=== PATIENT | male | born 1935 | race Caucasian/White ===

== ENCOUNTER → 2019-09-04 | Outpatient (CLI) | payer MEDICARE, OTHER ==
[2019-07-07 11:48] VITALS: BP 120/59
[~2019-09-04] MED LIST: ASPI-612 PO; PANT40TA77 PO
--- NOTE | 2019-09-04 16:19 | CARD ---
MR#: [id number] Date of Study: 09/04/2019 Ordering Physician: ARMEN MEJIA, Referring Physician: ARMEN MEJIA, Tech: APPROVED REPORT PROCEDURE: IMPLANTABLE LOOP RECORDER Reason for procedure: Dizziness, bradycardia, SSS Details: After appropriate informed consent the patient was brought to the procedure suite. The chest was prep ped and draped in usual sterile fashion. 2% lidocaine local anesthesia was administered to the left p arasternal space in a angulated fashion near the fourth rib space. Next, a loop 11 blade scalpel was used to make a 0.5 inch incision and a separate case tunnel was created with the loop recorder deploy ment/tunneling tool. Next, the [employer] confirm Rx loop recorder was implanted without any difficulty . R-wave amplitude was measured at 0.36 mV. Serial number of the device: [id number] The incision was closed with 1 2-0 suture and Steri-Strips. The patient tolerated the procedure well and there were no acute competitions. <Conclusion> Successful plantation of a loop recorder for sick sinus syndrome/bradycardia. Signed by : Armen Mejia, Electronically Approved : 09/04/2019 16:18:57
== END | disposition home or self-care (01) ==
LOC: LINQ 11:56
PROVIDERS: ATTEND Internal Medicine Cardiovascular Disease
DX: Z45.09 Encounter for adjustment and management of other cardiac device (principal); R42 Dizziness and giddiness; R00.1 Bradycardia, unspecified
CPT/HCPCS: 33285; C1764

== ENCOUNTER → 2019-09-04 | Outpatient (CLI) | payer MEDICARE, OTHER ==
[2019-07-07 11:48] VITALS: BP 120/59
--- NOTE | 2019-09-04 12:41 | CARD ---
MR#: [id number] Date of Study: 09/04/2019 Ordering Physician: ARMEN MEJIA, Referring Physician: ARMEN MEJIA, Alejandro: Keri Vuong APPROVED REPORT EXAM: Two-dimensional and M-mode echocardiogram with Doppler and color Doppler. Other Information Quality : AverageHR: 61bpm INDICATION Abnormal ECG 2D DIMENSIONS RVDd2.8 (2.9-3.5cm)Left Atrium(2D)3.9 (1.6-4.0cm) IVSd1.2 (0.7-1.1cm)Aortic Root(2D)3.0 (2.0-3.7cm) LVDd4.5 (3.9-5.9cm)LVOT Diameter2.2 (1.8-2.4cm) PWd1.1 (0.7-1.1cm)LVDs2.6 (2.5-4.0cm) FS (%) 41.5 %SV65.9 ml LVEF(%)72.5 (>50%) Aortic Valve AoV Peak Prakash.129.9cm/sAoV VTI25.1cm AO Peak GR.6.8mmHgLVOT Peak Prakash.113.4cm/s LVOT VTI 23.42cmAO Mean GR.4mmHg GAUTAM (VMAX)2.32gr6QWK (VTI)3.52cm2 Mitral Valve MV E Xnhzxvtk41.2cm/sMV DECEL [id number] MV A Bsalcsol97.7cm/sMV TKM59tj E/A Ratio0.8MVA (PHT)3.35cm2 TDI E/Lateral E'8.9E/Medial E'11.3 Pulmonary Valve PV Peak Efhnaclp387.3cm/sPV Peak Grad.8mmHg Tricuspid Valve RAP [id number] Pulmonary Vein S1 Awfjbufp85.1cm/sD2 Jswbqlwo18.2cm/s PVa [id number] LEFT VENTRICLE The left ventricle is normal size. There is borderline to mild septal left ventricular hypertrophy. T he left ventricular systolic function is normal and the ejection fraction is within normal range. The Ejection Fraction is 60-65%. There is normal LV segmental wall motion. Transmitral Doppler flow ro mazin is Grade I-abnormal relaxation pattern. RIGHT VENTRICLE The right ventricle cavity is small. The right ventricular systolic function is normal. ATRIA The left atrium size is normal. The right atrium size is normal. The interatrial septum is intact wit h no evidence for an atrial septal defect or patent foramen ovale as noted on 2-D or Doppler imaging. AORTIC VALVE The aortic valve is thickened but opens well. Doppler and Color Flow revealed trace aortic regurgitat ion. There is no significant aortic valvular stenosis. MITRAL VALVE The mitral valve is thickened but opens well. There is no evidence of mitral valve prolapse. There is no mitral valve stenosis. Doppler and Color-flow revealed trace mitral regurgitation. TRICUSPID VALVE The tricuspid valve is normal in structure and function. Doppler and Color Flow revealed trace tricus pid regurgitation. There is no tricuspid valve stenosis. PULMONIC VALVE The pulmonic valve is not well visualized. Doppler and Color Flow revealed trace to mild pulmonic crystal vular regurgitation. There is no pulmonic valvular stenosis. GREAT VESSELS The aortic root is normal in size. The ascending aorta is borderline dilated The IVC is normal in siz e and collapses >50% with inspiration. PERICARDIAL EFFUSION There is no pleural effusion. There is no evidence of significant pericardial effusion. Critical Notification Critical Value: No <Conclusion> The left ventricular systolic function is normal and the ejection fraction is within normal range. Th e Ejection Fraction is 60-65%. There is normal LV segmental wall motion. Signed by : Armen Mejia, Electronically Approved : 09/04/2019 12:40:57
== END | disposition home or self-care (01) ==
LOC: ECHO 10:35
PROVIDERS: ATTEND Internal Medicine Cardiovascular Disease
DX: I37.1 Nonrheumatic pulmonary valve insufficiency (principal); I51.7 Cardiomegaly
CPT/HCPCS: 93306

== ENCOUNTER → 2020-05-22 | Outpatient (CLI) | payer MEDICARE, OTHER ==
[2019-07-07 11:48] VITALS: BP 120/59
[~2020-05-22] MED LIST changes: -ASPI-612 PO; +ASPI-886 PO
--- NOTE | 2020-05-22 11:45 | RAD ---
CT HEAD WO CONTRAST Date: 05/22/2020 11:30 AM Clinical Indication: Reason: ALZHEIMERS LATE ONSET / Spl. Instructions: / History: Comparison: 07/06/2019. Technique: 5 mm axial tomographic images were obtained of the head without contrast. These were viewed on brain and bone windows. One or more of the following dose reduction techniques were utilized: Automated exposure control (AEC), Adjustment of mA and/or kV according to patient size, Use of iterative reconstruction technique such as ASiR, CT scan done according to ALARA and image gently/image wisely Findings: Mild generalized cerebral and cerebellar volume loss. Mild nonspecific periventricular hypoattenuation, most commonly seen with chronic small vessel ischemic disease. Calcified atherosclerosis of the bilateral cavernous and paraclinoid internal carotid arteries and intracranial vertebral arteries. No intra- or extra-axial mass or fluid collection. No acute hemorrhage. The ventricles are normal in size, shape, and morphology. The stubbs-white matter junction is normal. The subarachnoid cisterns are patent. The visualized paranasal sinuses are clear. Nasal septum is deviated to the left. Right stacey bullosa. The visualized portions of the orbits and globes are normal. The mastoid air cells are clear. The property analyst topogram shows no lytic lesion or fracture. Impression: No acute intracranial process. Mild cerebral volume loss. Mild chronic small vessel ischemic disease. Electronically signed by: Fercho Kenny MD (05/22/2020 11:42 AM) [id number]
== END | disposition home or self-care (01) ==
LOC: CT 12:12
PROVIDERS: ATTEND Psychiatry & Neurology Neurology with Special Qualifications in Child Neurology
DX: I67.82 Cerebral ischemia (principal); I67.2 Cerebral atherosclerosis; G30.1 Alzheimer's disease with late onset; I65.23 Occlusion and stenosis of bilateral carotid arteries
CPT/HCPCS: 36415; 70450; 82607; 82746; 84443; 86140

== ENCOUNTER → 2020-07-11 | Outpatient (CLI) | payer MEDICARE, OTHER ==
[2019-07-07 11:48] VITALS: BP 120/59
--- NOTE | 2020-07-11 15:51 | RAD ---
Bilateral lower extremity arterial ultrasound History:Claudication Findings: Multiple grayscale, color, and duplex spectral analysis sonographic images were acquired of the lower extremity arteries bilaterally. There are no previous similar exams. There is moderate scattered plaque. There are triphasic and biphasic waveforms bilaterally. No vessel occlusion is demonstrated. There is collateral vessel at level of the right distal superficial femoral artery. There is appearance on color images of more focal narrowing and greater degree of plaque of the right dorsalis pedis artery although demonstrable flow present distally. There is also appearance of focus of decreased color-flow in the distal left superficial femoral artery although color flow more distally. There is degree of stenosis of the left common femoral artery. Velocities in cm/sec: RIGHT Common femoral artery 125 Profunda femoris artery 89 Proximal SFA 123 Mid SFA 112 Distal SFA 109 Popliteal artery 115 Posterior tibial artery 84 proximally and 26 distally Peroneal artery 86 Anterior tibial artery 71 Dorsalis pedis artery 125 LEFT: Common femoral artery 140 Profunda femoris artery 87 Proximal SFA 98 Mid SFA 109 Distal SFA 103 Popliteal artery 101 Posterior tibial artery 70 proximally and 78 distally Peroneal artery 77 Anterior tibial artery 66 Dorsalis pedis artery 99 Impression: 1. There is scattered multifocal plaque bilaterally. There is likely more focal stenosis of the left common femoral artery, also possibly of the distal left superficial femoral artery and the distal right dorsalis pedis artery. No vessel occlusion is demonstrated. Electronically signed by: Fercho Saravia MD (07/11/2020 3:48 PM) [id number]
== END | disposition home or self-care (01) ==
LOC: US 12:17
PROVIDERS: ATTEND Psychiatry & Neurology Neurology with Special Qualifications in Child Neurology
DX: I70.203 Unspecified atherosclerosis of native arteries of extremities, bilateral legs (principal)
CPT/HCPCS: 93925

== ENCOUNTER → 2020-07-15 | Outpatient (CLI) | payer MEDICARE, OTHER ==
[2019-07-07 11:48] VITALS: BP 120/59
--- NOTE | 2020-07-15 14:43 | RAD ---
3 views of the lumbar spine without comparison for lumbago with bilateral sciatica. FINDINGS: There is straightening of normal lumbar lordosis. There is mild wedging of T12 possibly due to an old healed compression fracture. No acute fracture or osseous abnormality is seen. No alignment abnormality. Bilateral pars defects are present at L5 however. Aortic atherosclerosis is seen. Robust facet arthrosis is present lower lumbar levels. IMPRESSION: 1. No acute osseous or alignment abnormality. 2. Multilevel degenerative changes. 3. Bilateral pars defects of L5. No spondylolisthesis. Electronically signed by: Ty Samaniego MD (07/15/2020 2:40 PM) [id number]
== END | disposition home or self-care (01) ==
LOC: RAD 12:54
PROVIDERS: ATTEND Psychiatry & Neurology Neurology with Special Qualifications in Child Neurology
DX: M47.816 Spondylosis without myelopathy or radiculopathy, lumbar region (principal); M40.46 Postural lordosis, lumbar region; M48.54XA Collapsed vertebra, not elsewhere classified, thoracic region, initial encounter for fracture; I70.0 Atherosclerosis of aorta
CPT/HCPCS: 72100

== ENCOUNTER 2020-10-12 10:46 | Emergency (ER) | payer MEDICARE, OTHER ==
[~2020-10-12] VITALS: Ht 175.3 cm; Wt 89.0 kg
[2020-10-12] MEDS ORDERED: ONDANSETRON PF 4 MG/2 ML VIAL. IVP ONE (11:15)
[2020-10-12] MEDS ORDERED: IV NORMAL SALINE 500ML BAG 500 ML IV ONE (11:15)
[2020-10-12 11:20] LABS: BASO # 0.4 x10^3/uL (0.0-0.2); BASO % 4 % (0-3); EOS # 0.3 x10^3/uL (0.0-0.7); EOS % 2 % (0-3); LYMPH # 3.1 x10^3/uL (1.0-4.8); LYMPH % 27 % (24-48); MEAN CORPUSCULAR HEMOGLOBIN 38 pg (25-35); MEAN CORPUSCULAR HGB CONC 35 g/dL (31-37); MEAN CORPUSCULAR VOLUME 109 fL (79-100); MONO # 0.9 x10^3/uL (0.0-1.1); MONO % 7 % (0-9); NEUT # 6.8 x10^3/uL (1.8-7.7); NEUT % 60 % (31-73); PLATELET COUNT 333 x10^3/uL (140-400); RED BLOOD COUNT 2.94 x10^6/uL (4.30-5.70); RED CELL DISTRIBUTION WIDTH 23.2 % (11.5-14.5); WHITE BLOOD COUNT 11.5 x10^3/uL (4.0-11.0)
[2020-10-12 11:28] LABS: CALCIUM 9.1 mg/dL (8.5-10.1); CREATININE 1.1 mg/dL (0.7-1.3); GFR 63.5; POTASSIUM 4.4 mmol/L (3.5-5.1)
--- NOTE | 2020-10-12 11:28 | PHYS DOC ---
Past Medical History Past Medical History: CAD, Dementia Past Surgical History: Other Additional Past Surgical Histo: cardiac cath with stent; R shoulder, L hand Smoking Status: Former Smoker Alcohol Use: None Drug Use: None General Adult EDM: Chief Complaint: GENERALIZED BODY ACHES HPI: HPI: Patient is a 85 year old male who presents with today he began feeling nausea, fatigue and headache with slight lightheadedness. Patient son had Covid 2 weeks ago. Patient states he did eat some cereal this morning and drink. He rates his headache and general body aches and fatigue a 5 out of 10. Patient has a history of Alzheimer's, CAD, cardiac cath, former smoker. Patient states he does have some shortness of breath but no chest pain. Denies vomiting, diarrhea, fever, syncope, back pain, neck pain, abdominal pain, numbness or tingling, focal weakness. Review of Systems: Review of Systems: Constitutional: Denies fever or chills. [] Eyes: Denies change in visual acuity. [] HENT: Denies nasal congestion or sore throat. [] Respiratory: Denies cough. +shortness of breath. [] Cardiovascular: Denies chest pain or edema. [] GI: Denies abdominal pain. + nausea, denies vomiting, bloody stools or diarrhea. [] : Denies dysuria. [] Musculoskeletal: Denies back pain or joint pain. + Generalized body aches [] Integument: Denies rash. [] Neurologic: + headache and +lightheadedness, denies focal weakness or sensory changes. [] Endocrine: Denies polyuria or polydipsia. [] Lymphatic: Denies swollen glands. [] Psychiatric: Denies depression or anxiety. [] Heart Score: Risk Factors: Risk Factors: DM, Current or recent (<one month) smoker, HTN, HLP, family history of CAD, obesity. Risk Scores: Score 0 - 3: 2.5% MACE over next 6 weeks - Discharge Home Score 4 - 6: 20.3% MACE over next 6 weeks - Admit for Clinical Observation Score 7 - 10: 72.7% MACE over next 6 weeks - Early Invasive Strategies Current Medications: Current Medications Medications (Trade) Dose Ordered Sig/Roni Start Time Stop Time Status Last Admin Dose Admin Ondansetron HCl (Zofran) 4 mg 1X ONCE 10/12/20 11:15 10/12/20 11:16 DC Sodium Chloride 500 ml @ 500 mls/hr 1X ONCE 10/12/20 11:15 10/12/20 12:14 Allergies: Allergies: Allergies Coded Allergies Type Severity Reaction Last Updated Verified No Known Drug Allergies 07/06/19 No Physical Exam: PE: Constitutional: Well developed, well nourished, no acute distress, non-toxic appearance. [] HENT: Normocephalic, atraumatic, bilateral external ears normal, oropharynx moist, no oral exudates, nose normal. [] Eyes: PERRLA, EOMI, conjunctiva normal, no discharge. [] Neck: Normal range of motion, no tenderness, supple, no stridor. [] Cardiovascular:Heart rate regular rhythm, no murmur [] Lungs & Thorax: Bilateral breath sounds clear to auscultation [] Abdomen: Bowel sounds normal, soft, no tenderness, no masses, no pulsatile masses. [] Skin: Warm, dry, no erythema, no rash. [] Back: No tenderness, no CVA tenderness. [] Extremities: No tenderness, no cyanosis, no clubbing, ROM intact, no edema. [] Neurologic: Alert and oriented X 3, normal motor function, normal sensory function, no focal deficits noted. [] Psychologic: Affect normal, judgement normal, mood normal. [] Current Patient Data: Vital Signs: Vital Signs Date Time Temp Pulse Resp B/P (MAP) Pulse Ox O2 Delivery O2 Flow Rate FiO2 10/12/20 11:00 98.5 74 16 155/93 (113) 97 Room Air 98.5 EKG: EK and read by Dr. Benton this sinus rhythm and no STEMI Radiology/Procedures: Radiology/Procedures: [] Impression: [facility] [address] [place], [place] [id number] IMAGING REPORT Signed PATIENT: JESUS HOBBS ACCOUNT: [id number] : 1935 LOCATION: ER AGE: 85 SEX: M EXAM STATUS: REG ER ORD. PHYSICIAN: JOHANNA DARBY APRN REASON: soa PROCEDURE: PORTABLE CHEST 1V Exam performed: CT scan of the head without contrast, single view chest Date of Service: 10/12/2020. Comparison: CT head without contrast from 05/22/2020. Clinical History: Dizziness and syncope. Technique: Helical acquisitions are obtained from the foramen magnum to the vertex without intravenous administration of contrast. Findings: The ventricles are midline without evidence of dilatation. Normal stubbs-white differentiation is maintained. Mild atrophy is stable. There is no extra axial fluid collection, intraparenchymal hemorrhage or mass lesion. The visualized portions of the orbits, paranasal sinuses and the mastoid air cells appear clear. The calvarium is intact. Impression: No acute intracranial process detected. PQRS Compliance Statement: One or more of the following individualized dose reduction techniques were utilized for this examination: 1. Automated exposure control 2. Adjustment of the mA and/or kV according to patient size 3. Use of iterative reconstruction technique End impression Exam performed: One view chest. Indication: Reason: soa / Spl. Instructions: / History: Date of Service: 10/12/2020 11:21 AM Comparison: None available. Single AP upright portable view chest findings: Cardiomediastinal silhouette is within limits of normal. No acute infiltrates, effusion or pneumothorax is detected. The bony structures are normal. Impression: No acute cardiopulmonary process is detected. Electronically signed by: Joaquina Hernandes MD (10/12/2020 11:43 AM) [id number] DICTATED and SIGNED BY: JOAQUINA HERNANDES MD DATE: 10/12/20 [id number] Course & Med Decision Making: Course & Med Decision Making Pertinent Labs and Imaging studies reviewed. (See chart for details) COVID-19 CRITERIA: The patient was evaluated during the global COVID-19 pandemic, and that diagnosis was suspected/considered upon their initial presentation. Their evaluation, treatment and testing was consistent with current guidelines for patients who present with complaints or symptoms that may be related to COVID-19. See HPI. Alert and oriented x4. Patient does have Alzheimer's and he is a poor historian. He does answer questions appropriately. He can full clear sentenc es. Ambulatory with a steady gait. Abdomen soft and nontender. Lungs are clear to auscultation all lobes. Chest x-ray shows no acute findings. CT of the head shows no acute findings. Patient is not hypoxic or requiring oxygen. Blood work is unremarkable. He is afebrile. Patient will be sent home with Covid precautions. [] Dragon Disclaimer: Draganali Disclaimer: This electronic medical record was generated, in whole or in part, using a voice recognition dictation system. COVID-19 Patient Risks: Age 65 or older: Yes Sign of co-morbidity: Yes Exp to person + for COVID: Yes Exp to PUI: Yes Travel from affected area: No Lower respiratory symptoms: Yes Fever: No Other: Yes (fatigue) PPE Use: Full PPE with N95 mask or PAPR: Yes Departure Departure Impression: Primary Impression: Person under investigation for COVID-19 Additional Impressions: Generalized body aches Fatigue Qualified Codes: R53.83 - Other fatigue Disposition: DC HOME SELF CARE/HOMELESS Condition: STABLE Referrals: SAM JUNIOR MD (PCP) Patient Instructions: Fatigue Additional Instructions: Follow-up with your primary care provider. Return if you begin having severe shortness of breath, chest pain or cannot keep food or fluids down. Quarantine for Covid and that test will come will be back in 48 hours. You have been tested for or diagnosed with COVID-19. It is an infection caused by a new type of coronavirus. COVID-19 will cause cold-like or mild flu symptoms in most. It can cause more severe symptoms like problems breathing in some. There is no treatment for COVID-19. The body will clear the infection over time. Self-care will help to ease discomfort. Steps to Take: Self-Care Rest as needed. Healthy habits may help you feel better. Steps include: Choose healthy foods including fruits and vegetables. Drink water throughout the day. Get plenty of sleep each night. If you smoke, try to quit. It may ease breathing. Avoid alcohol. Keep Others Healthy The virus can spread to others. Droplets are released every time you sneeze or cough. The droplets can get into the mouth, nose, or eyes of people near you and lead to infection. To lower the chances of spreading COVID-19 to others: Stay at home until your doctor has said it is safe to leave. If you tested positive this will mean staying isolated until both of the following are true: At least 7 days have passed since the start of illness. You are free of fever for at least 72 hours without the use of medicine. During this time: - Avoid public areas, events, or transportation. Do not return to work or school until your doctor has said it is safe to do so. - Call ahead if you need to go to a medical center. Let them know you may have COVID-19. It will help them guide you where to go. They may also ask you to wear a facemask when you come to the office. - If you call for emergency medical services, let them know you may have COVID- 19. While at home: - Try to avoid close contact with others. Stay about 6 feet away. - If possible, spend most of your time in a separate room from others. - Use a face mask if you will be in close contact with others such as sharing a room or vehicle. - Have someone wipe down common surfaces in the home. Use household horticultural manager every day on areas like doorknobs, counters, or sinks. - Cough or sneeze into a tissue. Throw the tissue away right after use. If a tissue is not available, cough or sneeze into your elbow. - Wash your hands often. Wash them after sneezing or coughing. Use soap and water and wash for at least 20 seconds. Alcohol based hand cleaner housekeeping can be used if soap and water is not available. - Do not prepare food for others. Avoid sharing personal items like forks, spoons, or toothbrushes. - Avoid close contact with pets while you are sick. There is no evidence of the virus passing to pets. This is a safety step until more is known about this virus. Isolation can be frustrating. Social interaction can help. Keep in touch with friends and family through phone and tech options. You can still interact with others in your home, just keep a safe distance of about 6 feet. Follow-up: Your doctors office will check in with you to see if there are any changes in your health. You may be asked to keep track of symptoms to share with them. They will also let you know when you are clear to be in public again. Problems to Look Out For: Contact your doctor if your recovery is not going as you expect. Get emergency care if you have problems such as: - Trouble breathing - Nonstop chest pain or pressure - Changes in awareness, confusion, or problems waking - Lips or face have bluish color - Worsening of symptoms If you think you have an emergency, call for emergency medical services right aw ay. As taken from [facility] Azithromycin (AZITHROMYCIN TABLET) 250 Mg Tablet 1 PKG PO UD for 5 Days, #6 TAB 0 Refills 2 the first day followed by 1 for days 2-5 Prov: JOHANNA DARBY APRN 10/12/20 Albuterol Sulfate (PROAIR HFA INHALER) 8.5 Gm Hfa.aer.ad 1 PUFF INH PRN Q6HRS PRN for SHORTNESS OF BREATH, #1 INHALER 0 Refills Prov: JOHANNA DARBY APRN 10/12/20 Methylprednisolone (MEDROL) 4 Mg Tab.ds.pk 1 PKG PO UD, #1 PKG Prov: JOHANNA DARBY APRN 10/12/20 JOHANNA DARBY APRN Oct 12, 2020 11:28
[2020-10-12 11:33] LABS: ALBUMIN 3.6 g/dL (3.4-5.0); ALBUMIN/GLOBULIN RATIO 1.4 (1.0-1.7); MAGNESIUM 2.5 mg/dL (1.8-2.4); TOTAL BILIRUBIN 0.6 mg/dL (0.2-1.0); TOTAL PROTEIN 6.1 g/dL (6.4-8.2)
--- NOTE | 2020-10-12 11:46 | RAD ---
Exam performed: CT scan of the head without contrast, single view chest Date of Service: 10/12/2020. Comparison: CT head without contrast from 05/22/2020. Clinical History: Dizziness and syncope. Technique: Helical acquisitions are obtained from the foramen magnum to the vertex without intravenou s administration of contrast. Findings: The ventricles are midline without evidence of dilatation. Normal stubbs-white differentiation is maint ained. Mild atrophy is stable. There is no extra axial fluid collection, intraparenchymal hemorrhage or mass lesion. The visualized portions of the orbits, paranasal sinuses and the mastoid air cells a ppear clear. The calvarium is intact. Impression: No acute intracranial process detected. PQRS Compliance Statement: One or more of the following individualized dose reduction techniques were utilized for this examinat ion: 1. Automated exposure control 2. Adjustment of the mA and/or kV according to patient size 3. Use of iterative reconstruction technique End impression Exam performed: One view chest. Indication: Reason: soa / Spl. Instructions: / History: Date of Service: 10/12/2020 11:21 AM Comparison: None available. Single AP upright portable view chest findings: Cardiomediastinal silhouette is within limits of normal. No acute infiltrates, effusion or pneumotho rax is detected. The bony structures are normal. Impression: No acute cardiopulmonary process is detected. Electronically signed by: Joaquina Hernandes MD (10/12/2020 11:43 AM) [id number]
[2020-10-12 12:17] LABS: % EOS 4 % (0-5); % LYMPHS 30 % (24-48); % MONOS 8 % (0-10); % SEGS 58 % (35-66); ANISOCYTOSIS SLIGHT; OVALOCYTES FEW; PLT ESTIMATE ADEQUATE (ADEQUATE)
[2020-10-12] MEDS ORDERED: METH4TAB2 PO (12:24)
[2020-10-12] MEDS ORDERED: ALBU2.5V8 INH (12:24)
[2020-10-12] MEDS ORDERED: AZIT250T6 PO (12:24)
[2020-10-12 12:33] VITALS: BP 146/72
[2020-10-12 12:37] LABS: BILIRUBIN,URINE NEGATIVE (NEG); CLARITY,URINE CLEAR; COLOR,URINE YELLOW; NITRITE,URINE NEGATIVE (NEG); PH,URINE 5.5 (<5.0-8.0); PROTEIN,URINE NEGATIVE (NEG-TRACE); UROBILINOGEN,URINE 0.2 mg/dL (0.2 mg/dL)
[2020-10-12 12:47] LABS: BACTERIA,URINE 0 /HPF (0-FEW); RBC,URINE 0 /HPF (0-2); WBC,URINE OCC /HPF (0-4)
--- NOTE | 2020-10-14 11:03 | NUR ---
IP: Informed pt of negative COVID results. Pt verbalized understanding.
--- NOTE | 2020-10-14 12:25 | EKG ---
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
== END 2020-10-12 12:40 | disposition home or self-care (01) ==
LOC: ER 10:46
DX: R53.83 Other fatigue (principal); Z20.828 Contact with and (suspected) exposure to other viral communicable diseases; R51.9 Headache, unspecified; R42 Dizziness and giddiness; R11.0 Nausea; F03.90 Unspecified dementia, unspecified severity, without behavioral disturbance, psychotic disturbance, mood disturbance, and anxiety; I25.10 Atherosclerotic heart disease of native coronary artery without angina pectoris; Z87.891 Personal history of nicotine dependence; Z98.890 Other specified postprocedural states
CPT/HCPCS: 36415; 70450; 71045; 80053; 81001; 83690; 83735; 83880; 84484; 85007; 85025; 93005; 96361; 96374; 99285; C9803; J2405; J7040; U0003

== ENCOUNTER → 2021-01-30 | Outpatient (CLI) | payer MEDICARE, OTHER ==
[~2021-01-30] MED LIST changes: +ALBU2.5V8 INH; +AZIT250T6 PO; +CRAN250C PO; +CYAN25008 PO; +DONE10TA7 PO; +MEMA10TA PO; +METH4TAB2 PO; +MULTICOLLAGEN PO; +ONDA4TAB7 PO
== END ==
LOC: LAB 11:17
PROVIDERS: ATTEND Internal Medicine Cardiovascular Disease
DX: Z01.812 Encounter for preprocedural laboratory examination (principal); I49.5 Sick sinus syndrome; Z20.822 Contact with and (suspected) exposure to COVID-19
CPT/HCPCS: U0003; U0005

== ENCOUNTER 2021-02-02 08:37 | Observation (INO) | payer MEDICARE, OTHER ==
[~2021-02-02] VITALS: Ht 177.8 cm; Wt 84.3 kg
[2021-02-02] VITALS (18 sets, daily range): BP systolic 108–162; BP diastolic 52–76
[~2021-02-02 08:37] MED LIST changes: -CRAN250C PO; -CYAN25008 PO; -DONE10TA7 PO; -MEMA10TA PO; -MULTICOLLAGEN PO; -ONDA4TAB7 PO
--- NOTE | 2021-02-02 09:23 | EKG ---
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
[2021-02-02] MEDS ORDERED: CRAN250C PO (09:25)
[2021-02-02] MEDS ORDERED: MULTICOLLAGEN PO (09:25)
[2021-02-02] MEDS ORDERED: ONDA4TAB7 PO (09:25)
[2021-02-02] MEDS ORDERED: MEMA10TA PO (09:25)
[2021-02-02] MEDS ORDERED: CYAN25008 PO (09:25)
[2021-02-02] MEDS ORDERED: DONE10TA7 PO (09:25)
[2021-02-02 09:42] LABS: CALCIUM 8.5 mg/dL (8.5-10.1); CREATININE 1.1 mg/dL (0.7-1.3); GFR 63.5; POTASSIUM 4.2 mmol/L (3.5-5.1)
[2021-02-02] MEDS ORDERED: BACITRACIN 50,000 UNIT in IV NORMAL SALINE 250ML 250 ML IRR ONE (10:00)
[2021-02-02 10:01] LABS: HEMATOCRIT 31.4 % (39.0-53.0); HEMOGLOBIN 10.8 g/dL (13.0-17.5); RED BLOOD COUNT 2.9 x10^6/uL (4.30-5.70); RED CELL DISTRIBUTION WIDTH 22.6 % (11.5-14.5); WHITE BLOOD COUNT 7.1 x10^3/uL (4.0-11.0)
[2021-02-02 10:28] LABS: PROTHROMBIN TIME PATIENT 14.4 SEC (11.7-14.0)
[2021-02-02] MEDS ORDERED: LIDOCAINE 2%/EPI 1:100,000 20 ML VIAL. ONE (11:01)
[2021-02-02] MEDS ORDERED: MIDAZOLAM HCL/PF 2 MG/2 ML VIAL. ONE (11:06)
[2021-02-02] MEDS ORDERED: fentaNYL PF VIAL 100 MCG/2 ML VIAL ONE (11:06)
[2021-02-02] MEDS ORDERED: MIDAZOLAM HCL/PF 2 MG/2 ML VIAL. IV ONE (11:15)
[2021-02-02] MEDS ORDERED: fentaNYL PF VIAL 100 MCG/2 ML VIAL IV ONE (11:15)
--- NOTE | 2021-02-02 11:40 | PDOC ---
MODERATE SEDATION ASSESSMENT RISKS/ALTERNATIVES Risks/Alternatives Risks and alternatives of this type of sedation and procedure discussed with: RISK/ALTERNATIVES: Patient H & P ON CHART H & P H & P on chart and reviewed for co-morbid conditions and appropriate labs. H&P ON CHART: Yes STATUS PREG STATUS ASSESSED: N/A MEDS/ALLERGIES REVIEWED Meds/Allergies Reviewed Medications and Allergies including time and route of recently administered narcotics and sedatives. MEDS/ALLERGIES REVIEWED: Yes ASA RATING ASA RATING: II AIRWAY ASSESSMENT Airway Assessment Airway patency, oral function limitations, presence of caps, crowns, dentures, partials, and ability to extend neck assessed. AIRWAY ASSESSMENT: Yes MALLAMPATI SCORE MALLAMPATI SCORE: II PRE-SEDATION ASSESSMENT PRE-SEDATION ASSESSMENT: Yes ARMEN MEJIA MD Feb 02, 2021 11:40
[2021-02-02] MEDS: LIDOCAINE 2%/EPI 1:100,000 20 ML VIAL. IJ ONE ×2 (11:46→11:48)
[2021-02-02] MEDS ORDERED: NO ANTICOAGULANT THERAPY. MC PRN (13:00)
--- NOTE | 2021-02-02 13:37 | RAD ---
EXAM: Chest, single view. HISTORY: Pacemaker placement. COMPARISON: 10/12/2020. FINDINGS: A frontal view of the chest is obtained. There is a dual lead left cardiac pacemaker overly ing expected position. There is no pneumothorax. There is no infiltrate or pleural effusion. The hear t is normal in size. There has been removal of a cardiac event monitor. IMPRESSION: 1. Dual-lead left-sided cardiac pacemaker in expected position. 2. No acute pulmonary finding. Electronically signed by: Amelia Guidry MD (02/02/2021 1:35 PM) [id number]
--- NOTE | 2021-02-02 14:00 | CARD ---
MR#: [id number] Date of Study: 02/02/2021 Ordering Physician: ARMEN MEJIA, Referring Physician: ARMEN MEJIA, Tech: APPROVED REPORT HISTORY The Patient is a 85 year-old male with a history of SSS, high grade AVB PROCEDURES Insertion Dual Chamber Pacemaker *Loop recorder removal. fl time: 4.2 min dose: 12 gycm2 moderate sedation: 80 min INDICATIONS 30 mL of 2% lidocaine was infiltrated into the skin and subcutaneous tissues for local anesthesia. A n incision was made over the left infraclavicular fossa and using blunt dissection and cautery a pock et was created. Venous access was obtained in the left subclavian vein and 7 Thai sheaths were ins erted. Subsequently, a Medtronic bipolar active fixation right ventricular lead model 4076-58 with serial nu mber [id number] was advanced under fluoroscopic guidance and the tip was positioned in the right vent ricular apex. Following this, a Medtronic bipolar active fixation right atrial lead model 4076-52 [facility] serial number [id number] was placed in the right atrial appendage under fluoroscopy guidance. The leads were secured into place and were attached to a Medtronic dual-chamber permanent pacemaker gene rator model W3DR01 with serial number [id number]. This was placed in the pocket that was subsequentl y closed in 3 layers. Hemostasis was secured. At the end of procedure, the right ventricular lead showed sensing amplitude of 7.0 mV, impedance of 510 ohms and a threshold of 0.5 volts. The right atrial lead showed a sensing amplitude of 1.8 kristen volts, impedance of 658 ohms and a threshold of 1.0 volts. Finally, attention was then turned to the previously placed [place] loop recorder by the left parast ernal space. 5mL of lidocaine was infiltrated in the skin and subcutaneous tissues, a 11 blade scapel was used to make a 0.5 inch incision. The loop recorder was then removed without difficulty. The inc ision was then closed with a single 4-0 suture and steristrips. AAIR to DDDR 60-130 Patient tolerated the procedure well. There were no immediate complications. IV conscious sedation was used throughout procedure with appropriate monitoring and was performed in the presence of a registered nurse who was an independent trained observer other than the physician p erforming the procedure. During this case, Fluoroscopy and no contrast were used for imaging. Specimen(s) Removed: N/A Estimated Blood loss: 30 cc's. CONCLUSION 1. Successful insertion of a dual chamber pacemaker for SSS. Signed by : Armen Mejia, Electronically Approved : 02/02/2021 14:00:00
--- NOTE | 2021-02-02 15:20 | NUR ---
Patient being admitted to [facility], transferred via bed. notified-- she will be present at 0800 to meet w/ PPM rep. VS stable, site assessed; no bleeding. Education provided on site care. Report given to Elena SWENSON on 2S. Aware of 1720 antibiotic. All belongings taken w/ patient at time of transfer.
[2021-02-02] MEDS: oxyCODONE/APAP 5/325 1 TAB TABLET PO PRN ×2 (17:28→23:40)
--- NOTE | 2021-02-02 17:52 | NUR ---
The patient, JESUS HOBBS, 85 y/o, M admitted by ARMEN MEJIA MD, was given written information regarding hospital policies, unit procedures and contact persons.
[2021-02-03 03:21] VITALS: BP 122/62
[2021-02-03 07:00] VITALS: BP 115/65
--- NOTE | 2021-02-03 09:36 | RAD ---
EXAM: Chest, 2 views. HISTORY: Pacemaker placement. COMPARISON: 02/02/2021 FINDINGS: 2 views of the chest are obtained. There is a dual lead left cardiac pacemaker overlying ex pected position. There is no pneumothorax. There is no pleural effusion. The heart is normal in size. IMPRESSION: Dual lead cardiac pacemaker in expected location. Electronically signed by: Amelia Guidry MD (02/03/2021 9:34 AM) [id number]
[2021-02-03] MEDS: oxyCODONE/APAP 5/325 1 TAB TABLET PO PRN (10:10)
--- NOTE | 2021-02-03 10:36 | PDOC3 ---
MIRZA MARQUEZ PSYCHOLOGY ASSOCIATE 02/03/21 1036: Discharge Summary Visit Information Date of Admission: Feb 02, 2021 Date of Discharge: Feb 03, 2021 Admitting Diagnosis: Symptomatic SSS Final Diagnosis Symptomatic SSS, S/P PPM, ILR explantation Brief Hospital Course Allergies Allergies Coded Allergies Type Severity Reaction Last Updated Verified No Known Drug Allergies 07/06/19 No Vital Signs Vital Signs Date Time Temp Pulse Resp B/P (MAP) Pulse Ox O2 Delivery O2 Flow Rate FiO2 02/03/21 10:10 93 Room Air 02/03/21 07:00 98.6 62 18 115/65 (82) 98.6 02/02/21 19:09 2.0 Lab Results Laboratory Tests Test 02/02/21 09:20 White Blood Count 7.1 x10^3/uL (4.0-11.0) Red Blood Count 2.90 x10^6/uL (4.30-5.70) Hemoglobin 10.8 g/dL (13.0-17.5) Hematocrit 31.4 % (39.0-53.0) Mean Corpuscular Volume 108 fL (79-100) Mean Corpuscular Hemoglobin 37 pg (25-35) Mean Corpuscular Hemoglobin Concent 34 g/dL (31-37) Red Cell Distribution Width 22.6 % (11.5-14.5) Platelet Count 330 x10^3/uL (140-400) Prothrombin Time 14.4 SEC (11.7-14.0) Prothromb Time International Ratio 1.2 (0.8-1.1) Sodium Level 143 mmol/L (136-145) Potassium Level 4.2 mmol/L (3.5-5.1) Chloride Level 109 mmol/L (98-107) Carbon Dioxide Level 27 mmol/L (21-32) Anion Gap 7 (6-14) Blood Urea Nitrogen 13 mg/dL (8-26) Creatinine 1.1 mg/dL (0.7-1.3) Estimated GFR (Cockcroft-Gault) 63.5 Glucose Level 96 mg/dL (70-99) Calcium Level 8.5 mg/dL (8.5-10.1) Brief Hospital Course This is a pleasant 85 yo male admitted for planned PPM. Per ILR interrogation, it has revealed SSS with high grade AV block. He then had a successful insertion of a dual chamber pacemaker(medtronic) for SSS. No immediate complications. Denies any chest pain, SOA. ambulatory without difficulty. Left chest incision including prior ILR site is intact with steristrips. VSS, no significant ectopies. Repeat interrogations revealed normal functioning device and no immediate complications. LUE neurovascular status intact and sling is in place. Disucssed post pacer instructions with pt and son. No changes on Rx. Discharge Information Condition at Discharge: Stable Follow Up: Weeks (2) Disposition/Orders: D/C to Home Scheduled Cyanocobalamin (Vitamin B-12) (Vitamin B12) 2,500 Mcg Tablet, 1 TAB PO DAILY for rx for 30 Days, #30 Ref 0 (Reported) Entered as Reported by: MABLE TIERNEY on 02/02/21924 Last Action: Reviewed on 02/02/211806 by EDDIE HERNANDEZ Donepezil Hcl (Donepezil Hcl) 10 Mg Tablet, 10 MG PO HS for rx, (Reported) Entered as Reported by: MABLE TIERNEY on 02/02/21924 Last Taken: Unknown Dose on 02/01/21 Last Action: Reviewed on 02/02/211806 by EDDIE HERNANDEZ Memantine Hcl (Namenda) 10 Mg Tablet, 1 TAB PO BID for rx, #180 Ref 1 (Reported) Entered as Reported by: MABLE TIERNEY on 02/02/21924 Last Action: Reviewed on 02/02/211806 by EDDIE HERNANDEZ Ondansetron Hcl (Zofran) 4 Mg Tablet, 1 TAB PO Q6HRS for nausea, #20 (Reported) Entered as Reported by: MABLE TIERNEY on 02/02/21924 Last Action: Reviewed on 02/02/211806 by EDDIE HERNANDEZ Pantoprazole Sodium (Pantoprazole Sodium ) 40 Mg Tablet.dr, 40 MG PO DAILYAC for GERD, (Reported) Entered as Reported by: Mil Lee on 07/06/191905 Last Action: Reviewed on 02/02/211806 by EDDIE HERNANDEZ [multicollagen] , 1 TBS PO DAILY, (Reported) Entered as Reported by: MABLE TIERNEY on 02/02/21924 Last Action: Reviewed on 02/02/211806 by EDDIE HERNANDEZ Scheduled PRN Cranberry Extract (Cranberry) 250 Mg Capsule, 250 MG PO DAILY PRN for rx, (Reported) Entered as Reported by: MABLE TIERNEY on 02/02/21924 Last Action: Reviewed on 02/02/211806 by EDDIE HERNANDEZ Discontinued Medications Aspirin (Aspirin Ec) 81 Mg Tablet., 1 TAB PO DAILY for heart, #30 Ref 3 (Reported) Entered as Reported by: Mil Floresum on 07/06/191905 Last Action: Discontinued on 02/02/211806 by EDDIE HERNANDEZ Patient Instructions Patient Instructions Must know & what to expect after device implant: 1. Your surgical dressing should be removed prior to discharge from the [facility], but allow the steri- strips to fall off naturally. 2. Activity restrictions: DO NOT raise arm above shoulder level, lift anything heavier than a gallon of milk, and no push or pull motions such as vacuuming/lawn mowing, no swinging motions (golf), etc for 4 weeks. 3. It is OK to use a cell phone or other electronic devices just be sure you do not store it in a breast pocket on the side where the device was placed. 4. Device will be interrogated prior to your discharge from the hospital and then every 3 months for defibrillators and every 6 months for pacemakers. You may be asked to have your device checked remotely from home as well, but this will depend on your particular physicians preference. 5. You may remove the arm immobilizer the day after device placement. Wear the arm immobilizer/splint at night (during sleep times) for 2 week to prevent unintended arm movement that can cause lead dislodgement. 6. Do not drive for one week as the task of driving may lead to unintended arm motion that may cause lead dislodgement. The seatbelt will also rub against the incision site & cause irritation. 7. It is our recommendation that you utilize Tylenol at home for pain control. You need to call our office if you are having uncontrollable pain at the incision site. 8. Keep your incision clean and dry. It is OK to shower. DO NOT submerge in bath, pool, or hot tub, until cleared by your doctor, as this could lead to increase risk of infection.. It is OK to use regular soap just do not scrub the incision site. Water spray from shower should not directly hit the incision. Be sure to blot dry not rub. 9. Inspect your incision daily. If you notice any increased redness, swelling, or drainage, or if you start running a fever, call the office immediately. The number is [phone]. 10. For women, if you need to protect against irritation from the bra straps, you can place a piece of gauze over the incision site for cushion. Please be sure to tape it loosely to allow air to the site & remove the gauze when you remove the bra. 11. Be sure to carry your device identification information card in your wallet/purse at all times. 12. It is OK to go through security at the airport with your device, but be sure to let the TSA know prior to proceeding as the security settings change depending on varying factors. Please do whatever is requested by security at that time. 13. Some of the newer devices may be MRI compatible but, currently, the use of these devices is not widespread, so you likely will not be able to have an MRI. Please clarify this with your physician. If at any time, you feel lightheaded or dizzy/faint, stop what you are doing & lie down immediately. If you are driving, get to the side of the road quickly, turn your car off & call 911 on your cell phone. DO NOT continue to drive as this may cause an accident that seriously injures yourself &/or others. Call the office at [phone] for any questions or concerns. Justicifation of Admission Dx: Justifications for Admission: Justification of Admission Dx: Yes ARMEN MEJIA MD 02/03/211809: Discharge Summary Brief Hospital Course Brief Hospital Course The patient was seen and interviewed as well as examined at the bedside. The chart was reviewed. The case was discussed. Agree with the plan of care. Discharge Information Scheduled Cyanocobalamin (Vitamin B-12) (Vitamin B12) 2,500 Mcg Tablet, 1 TAB PO DAILY for rx for 30 Days, #30 Ref 0 (Reported) Entered as Reported by: MABLE TIERNEY on 02/02/21924 Last Action: Reviewed on 02/02/211806 by EDDIE HERNANDEZ Donepezil Hcl (Donepezil Hcl) 10 Mg Tablet, 10 MG PO HS for rx, (Reported) Entered as Reported by: MABLE TIERNEY on 02/02/21924 Last Taken: Unknown Dose on 02/01/21 Last Action: Reviewed on 02/02/211806 by EDDIE HERNANDEZ Memantine Hcl (Namenda) 10 Mg Tablet, 1 TAB PO BID for rx, #180 Ref 1 (Reported) Entered as Reported by: MABLE TIERNEY on 02/02/21924 Last Action: Reviewed on 02/02/211806 by EDDIE HERNANDEZ Ondansetron Hcl (Zofran) 4 Mg Tablet, 1 TAB PO Q6HRS for nausea, #20 (Reported) Entered as Reported by: MABLE TIERNEY on 02/02/21924 Last Action: Reviewed on 02/02/211806 by EDDIE HERNANDEZ Pantoprazole Sodium (Pantoprazole Sodium ) 40 Mg Tablet., 40 MG PO DAILYAC for GERD, (Reported) Entered as Reported by: Mil Lee on 07/06/191905 Last Action: Reviewed on 02/02/211806 by EDDIE HERNANDEZ [multicollagen] , 1 TBS PO DAILY, (Reported) Entered as Reported by: MABLE TIERNEY on 02/02/21924 Last Action: Reviewed on 02/02/211806 by EDDIE HERNANDEZ Scheduled PRN Cranberry Extract (Cranberry) 250 Mg Capsule, 250 MG PO DAILY PRN for rx, (Reported) Entered as Reported by: MABLE TIERNEY on 02/02/21924 Last Action: Reviewed on 02/02/211806 by EDDIE HERNANDEZ Discontinued Medications Aspirin (Aspirin Ec) 81 Mg Tablet.dr, 1 TAB PO DAILY for heart, #30 Ref 3 (Reported) Entered as Reported by: Mil Lee on 07/06/191905 Last Action: Discontinued on 02/02/211806 by MIRZA VILLA APRN Feb 03, 2021 10:36 ARMEN MEJIA MD Feb 03, 2021 18:10
--- NOTE | 2021-02-03 12:58 | NUR ---
Discharge Note: JESUS HOBBS Discharge instructions and discharge home medications reviewed with Patient and a copy given. All questions have been answered and understanding verbalized. Son at bedside and verbalized understanding. Follow up and DC instructions given.
== END 2021-02-03 12:50 | disposition home or self-care (01) ==
LOC: CCL 08:37 → 2 SOUTH 15:01
PROVIDERS: ADMIT Internal Medicine Cardiovascular Disease; ATTEND Internal Medicine Cardiovascular Disease
DX: I49.5 Sick sinus syndrome (principal); I44.30 Unspecified atrioventricular block; K21.9 Gastro-esophageal reflux disease without esophagitis; Z79.82 Long term (current) use of aspirin; Z79.899 Other long term (current) drug therapy; Z95.0 Presence of cardiac pacemaker
CPT/HCPCS: 33208; 33286; 36415; 71045; 71046; 80048; 85027; 85610; 93005; 96365; 96366; 99152; 99153; C1785; G0378; G0379; J0690; J2250; J3010; J3490; J7050; J7030

== ENCOUNTER → 2021-02-05 | Outpatient (CLI) | payer MEDICARE, OTHER ==
[2021-02-03 07:00] VITALS: BP 115/65
[~2021-02-05] MED LIST changes: +CRAN250C PO; +CYAN25008 PO; +DONE10TA7 PO; +MEMA10TA PO; +MULTICOLLAGEN PO; +ONDA4TAB7 PO; +REGADENOSON 0.4 MG/5 ML DISP.SYRIN. IV ONE
--- NOTE | 2021-02-05 15:50 | RAD ---
MR#: [id number] Date of Study: 02/05/2021 Ordering Physician: ARMEN MEJIA, Referring Physician: ARMEN MEJIA, Tech: Jack Nobles MBA, RDMS, RVT, RDCS, RTR APPROVED REPORT Patient Location: OUT-PATIENT Indications Claudication:Bilaterally VELOCITY AND DOPPLER WAVEFORM ANALYSIS RIGHT cm/secWaveformSeverity LEFT cm/secWaveform Severity dCFA 144.0TriphasicdCFA 131.0Triphasic Prof Fem Art. 82.0BiphasicProf Fem Art. 77.0Biphasic Fem Art Prox. 116.0BiphasicFem Art Prox. 92.0Biphasic Fem Art Mid. 126.0BiphasicFem Art Mid. 101.0Biphasic Fem Art Dist. 111.0BiphasicFem Art Dist. 87.0Biphasic Pop Art(Fossa) 96.0BiphasicPop Art(AK) 71.0Biphasic CASINO SHIFT MANAGER Prox. 40.0BiphasicPTA Prox. 49.0Biphasic CASINO SHIFT MANAGER Dist. 68.0BiphasicPTA Dist. 51.0Biphasic Per Art Mid. 53.0BiphasicPer Art Mid. 62.0Biphasic GAGANDEEP Prox. 50.0BiphasicATA Prox. 56.0Biphasic DPA 88BiphasicDPA 68Biphasic Findings Grayscale images of the bilateral lower extremity arterial vessels demonstrates moderate diffuse athe rosclerotic plaque without any significant high-grade obstruction. Spectral waveforms and color Dopp ler are mostly biphasic and there is three-vessel runoff below the knee with bilateral velocities wit hin the normal range. Critical Notification Critical Value: No <Conclusion> 1. No significant lower extremity arterial disease bilaterally Signed by : Armen Mejia, Electronically Approved : 02/05/2021 15:50:32
--- NOTE | 2021-02-05 15:51 | RAD ---
MR#: [id number] Date of Study: 02/05/2021 Ordering Physician: ARMEN MEJIA, Referring Physician: ARMEN MEJIA, Tech: Jack Nobles MBA, RDMS, RVT, RDCS, RTR APPROVED REPORT Patient Location: OUT-PATIENT Indications Claudication:Bilaterally Findings Right arm 116, left arm in brace Right ankle 139, left ankle 141 Right and left ankle-brachial indices are 1.2. Critical Notification Critical Value: No <Conclusion> 1. Normal bilateral ankle-brachial indices Signed by : Armen Mejia, Electronically Approved : 02/05/2021 15:51:18
--- NOTE | 2021-02-05 16:40 | RAD ---
MR#: [id number] Date of Study: 02/05/2021 Ordering Physician: ARMEN BRAMBILA, Referring Physician: EUGENIO BIRD Tech: RT Sandra Goncalves) (N) APPROVED REPORT Test Type: Pharmacological Stress Nurse/Tech: Steve Marquez RN Test Indications: CAD Cardiac History: PTCA, PPM Medications: See Electronic Medical Record Medical History: See Electronic Medical Record Resting ECG: pacemaker spikes noted Resting Heart Rate: 61 bpm Resting Blood Pressure: 140/63mmHg Pretest Chest Pain: None Nurse/Tech Notes Lungs CTA Consent: The procedure was explained to the patient in lay terms. Informed consent was witnessed. Vito eout was entered into [employer]. History and Stress Test performed by RT Sandra Orona) (N) Pharm. Details Pharmacologic stress testing was performed using 0.4mg per 5ml of regadenoson given intravenously ove r 7-10 seconds. Stress Symptoms No chest pain or symptoms. POST EXERCISE Reason for Termination: Infusion complete Max HR: 61 bpm Max Blood Pressure: 140/62mmHg Blood Pressure response to exercise: Normal blood pressure response during stress. Heart Rate response to exercise: normal response Chest Pain: No. Arrhythmia: Yes. PVC ST Change: No. INTERPRETATION Stress EKG Conclusion: No evidence of stress induced EKG changes. Imaging Protocol IMAGE PROTOCOL: Rest Tc-99m/stress Tc-99m 1 day Rest: Stress: Viability: Radiopharm.Tc99m LjugpmfeoYw10x Sestamibi Dose10.6mCi 31.9mCi Duration 15min. 15min. Img Date 02/05/2021 02/05/2021 Inj-Img Siel24qtz. 60min. Rest Admin Site:IV - Right AntecubitalAdministrator:RT Sandra Goncalves)(N) Stress Admin Site: IV - Right AntecubitalAdministrator: RT Sandra Orona)(N) STRESS DATA End Diast. Vol.86.0mlLVEDV index BSA42.0ml End Syst. Vol.30.0mlLVESV index BSA15.0ml Myocardial Vzlk975.0gEject. Vjyospwf13.0% Stress Scores Regional WT0.00Summed WT3.00 Regional WM0.00Summed WM8.00 The rest and stress images show normal perfusion, normal contraction and thickening. LV Perf. Quant 17 Seg. SSS2.00 17 Seg. SRS0.00 17 Seg. SDS2.00 Stress Defect Extent (% LAD)0.00Rest Defect Extent (% LAD)0.00Rev. Defect Extent (% LAD)0.00 Stress Defect Extent (% LCX) 25.00Rest Defect Extent (% LCX)5.00Rev. Defect Extent (% LCX)11.30 Stress Defect Extent (% RCA)0.00Rest Defect Extent (% RCA)0.00Rev. Defect Extent (% RCA)0.00 Stress Defect Extent (% SERGIO)4.30Rest Defect Extent (% SERGIO)0.90Rev. Defect Extent (% SERGIO)2.00 Other Information Quality:Average Risk Assessment: Low Risk Conclusion 1. No evidence of EKG changes with stress testing. 2. Normal perfusion at stress/rest. 3. Low risk study. 4. EF > 60%. Signed by : Armen Brambila, Electronically Approved : 02/05/2021 16:39:30
== END ==
LOC: NM 08:23
PROVIDERS: ATTEND Internal Medicine Cardiovascular Disease
DX: I25.10 Atherosclerotic heart disease of native coronary artery without angina pectoris (principal); I70.203 Unspecified atherosclerosis of native arteries of extremities, bilateral legs
CPT/HCPCS: 78452; 93017; 93922; 93925; A9500; J2785

== ENCOUNTER → 2021-02-11 | Outpatient (CLI) | payer MEDICARE, OTHER ==
[2021-02-03 07:00] VITALS: BP 115/65
[~2021-02-11] MED LIST changes: +NORMAL SALINE IV ONE; -REGADENOSON 0.4 MG/5 ML DISP.SYRIN. IV ONE; +SINCALIDE IV ONE
--- NOTE | 2021-02-11 10:54 | RAD ---
EXAM: Nuclear hepatobiliary scan. HISTORY: Nausea. TECHNIQUE: Following intravenous administration of 5 mCi Tc 99m Choletec, anterior images of the abdo men were obtained at five minute intervals through one hour. Subsequently, 1.67 mcg Kinevac was admin istered and additional images to assess gallbladder ejection fraction were obtained. FINDINGS: There is prompt radiotracer uptake by the liver. No focal defect is seen. There is normal e xcretion into the biliary tree. The gallbladder is visualized within 10 minutes and there is free ihsan w into the duodenum. The gallbladder ejection fraction is 85 percent. IMPRESSION: High gallbladder ejection fraction of 85 percent. Electronically signed by: Amelia Guidry MD (02/11/2021 10:52 AM) [id number]
== END ==
LOC: NM 08:31
PROVIDERS: ATTEND Internal Medicine Gastroenterology
DX: R11.0 Nausea (principal)
CPT/HCPCS: 78227; A9537; J2805

== ENCOUNTER → 2021-05-19 | Outpatient (CLI) | payer MEDICARE, OTHER ==
[~2021-05-19] MED LIST changes: -NORMAL SALINE IV ONE; -SINCALIDE IV ONE
--- NOTE | 2021-05-19 15:47 | NUR ---
Medtronic compliance representative dealer present to adjust pacemaker settings for study. Vital signs stable throughout procedure and patient tolerated well. Patient pacemaker settings returned to baseline and patient ambulated out of MRI without any problems.
--- NOTE | 2021-05-19 15:51 | RAD ---
EXAM: Lumbar spine MRI without contrast. HISTORY: Lumbar radiculopathy. TECHNIQUE: Multiplanar, multisequence magnetic resonance imaging of the lumbar spine was performed wi thout contrast. COMPARISON: None. FINDINGS: There is mild lumbar scoliosis. There is 2 mm grade 1 anterolisthesis of L4 on L5 and 3 mm grade 1 anterolisthesis of L5 on S1. There is multilevel endplate remodeling and disc desiccation. Th ere is slight disc space narrowing and Schmorl's node formation at multiple levels. There is no suspi cious osseous lesion. There is no fracture. The conus terminates at L1. There is a simple left renal cyst. Follow-up is not routinely performed for simple cysts. There is renal atrophy. At L1-L2, there is a disc bulge and endplate remodeling. There is minimal central canal stenosis. At L2-L3, there is a shallow broad-based right paracentral to lateral recess disc protrusion and 5 mm inferior extrusion superimposed on a disc bulge and endplate osteophytosis. There is mild bilateral facet arthropathy. There is minimal bilateral foraminal stenosis. There is moderate central canal vidal nosis and effacement of the right lateral recess. At L3 initial 4, there is a shallow broad-based posterior central to left lateral recess disc protrus ion and annular tear superimposed on a disc bulge and endplate osteophytosis. There is mild right and moderate facet arthropathy. There is mild bilateral foraminal stenosis with abutment of the exiting L3 nerve roots. There is moderate central canal stenosis. At L4-L5, there is a posterior central disc protrusion and annular tear superimposed on a disc bulge and endplate osteophytosis. There is severe bilateral facet arthropathy. There is hypertrophy of the ligamentum flavum. There is grade 1 anterolisthesis. There is mild bilateral foraminal stenosis with abutment of the exiting L4 nerve roots. There is severe central canal stenosis. At L5-S1, there is a posterior central disc protrusion and annular tear superimposed on a right later al predominant disc bulge and endplate osteophytosis. There is severe right and moderate left facet a rthropathy. There is grade 1 anterolisthesis. There is mild right and minimal left foraminal stenosis with abutment the exiting L5 nerve roots. There is mild central canal stenosis and effacement of the right lateral recess. IMPRESSION: Multilevel degenerative change involving the lumbar spine, described in detail above. Th is is associated with foraminal and central canal stenosis at multiple levels. The central canal sten osis is most severe at L4-L5. Electronically signed by: Amelia Guidry MD (05/19/2021 3:49 PM) [id number]
== END ==
LOC: MRI 14:06
PROVIDERS: ATTEND Orthopaedic Surgery
DX: M47.27 Other spondylosis with radiculopathy, lumbosacral region (principal); M51.17 Intervertebral disc disorders with radiculopathy, lumbosacral region; M48.07 Spinal stenosis, lumbosacral region; M41.86 Other forms of scoliosis, lumbar region; M43.17 Spondylolisthesis, lumbosacral region; M51.46 Schmorl's nodes, lumbar region; N28.1 Cyst of kidney, acquired; N26.1 Atrophy of kidney (terminal)
CPT/HCPCS: 72148

== ENCOUNTER → 2021-07-13 | Outpatient (CLI) | payer MEDICARE, OTHER ==
[~2021-07-13] MED LIST changes: +ASPI-630 PO; +IOHEXOL 180 MG/ML 10 ML VIAL. ONE; +SUCR1TAB PO; +methylPREDNISolone ACETATE 80 MG/ML VIAL. ONE
--- NOTE | 2021-07-13 12:56 | PDOC4 ---
Procedure Note: ICD 10 Code: ICD 10 Code: M54.16 M51.36 M4 8.06 Procedure Note: Patient was consented for lumbar epidural steroid injection with fluoroscopic guidance. Risks were discussed including but not limited to: Bleeding, infection, possibility of epidural hematoma and subsequent neurological compromise, dural puncture, headaches, spinal cord and/or nerve damage, side effects of steroid medication, and poor results regarding pain control. Patient understands and wished to proceed. Procedure is lumbar epidural steroid injection under local anesthetic using vidal rile prep and drape at the L4-5 level using C-arm fluoroscopic guidance in both AP and lateral views medications injected is 120 mg Depo-Medrol +10mL preservative-free normal saline and 2 mL contrast- condition at discharge is stable patient tolerated procedure well had no complications. TERRI TRIMBLE MD Jul 13, 2021 12:56
--- NOTE | 2021-07-13 12:56 | PDOC1 ---
INITIAL PAIN CONSULT DATE OF SERVICE: DOS: DATE: 07/13/21 TIME: 12:50 CHIEF COMPLAINT: Chief Complaint: Low back and bilateral lower extremity pain HISTORY OF PRESENT ILLNESS: 85-year-old male presents with history of pain low back bilateral lower extremities for about 2 years not result of any specific injury or accident that he is aware of but begin increasing and getting worse over that time with pain now rating across low back and the bilateral lower extremities posterior gluteus posterior lateral thigh lateral anterior thigh anteromedial thigh medial lower legs and with cold sensation in both of the feet now for about 2 years patient reports getting worse with time walking standing changing positions better with sitting or laying down generally does not awaken him from sleep at night but over the past 2 months it has once or twice patient reports it is not effective bowel bladder control does affect his ability to walk is only able to walk about 200 yards away has to stop for 1 year 2 years ago was able to walk indefinitely without stopping at all patient has had chiropractic treatment and is doing stretching and strength exercises on his own as well he feels this is helpful but not completely relieving pain. Patient is taking Tylenol also with seems to help only by about 40%. Patient describes his disability rating 0-10 10 me the worst as a fourth occupational activities 0 and all other categories self-care life support activities social activity family home responsibilities recreation. Patient did have MRI scan of the lumbar spine showing multilevel degenerative changes with foraminal and central canal stenosis at multiple levels most severe at L4-5. PAST MEDICAL HISTORY: PMH: Hearing loss, cigarette smoking quit 40 years ago, cardiovascular disease, cataracts PREVIOUS SURGERIES: Past Surgical Hx: Cataract extraction, cardiac stent placement, pacemaker placement, bilateral hand surgery CURRENT MEDICATIONS: Current Meds: Active Scripts Medications Dose Route/Sig Max Daily Dose Days Date Category Aspirin 81 Mg Tab.chew 1 Tab PO DAILY 07/13/21 Reported Sucralfate 1 Gm Tablet 1 Tab PO TID 07/13/21 Reported Protonix (Pantoprazole Sodium) 40 Mg Tablet.dr 40 Mg PO DAILYAC 07/13/21 Reported [multicollagen] 1 Tbs PO DAILY 02/02/21 Reported Vitamin B12 (Cyanocobalamin (Vitamin B-12)) 2,500 Mcg Tablet 1 Tab PO DAILY 30 02/02/21 Reported Cranberry (Cranberry Extract) 250 Mg Capsule 250 Mg PO DAILY PRN 02/02/21 Reported Donepezil Hcl 10 Mg Tablet 10 Mg PO HS 02/02/21 Reported Namenda (Memantine Hcl) 10 Mg Tablet 1 Tab PO BID 02/02/21 Reported Zofran (Ondansetron Hcl) 4 Mg Tablet 1 Tab PO Q6HRS 02/02/21 Reported ALLERGIES; Allergies: Coded Allergies: No Known Drug Allergies (Unverified , 07/06/19) FAMILY HISTORY: Family Hx: Significant for heart disease SOCIAL HISTORY: Social Hx: Patient does not drink alcohol quit smoking many years ago does not use any illegal illicit recreational drugs is lives with his spouse with his in [place] 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 REVIEW OF SYSTEMS: ROS: Positive for those items mentioned in history of present illness, all systems are reviewed, otherwise negative ,and are complete full and well-documented on patient's chart. PHYSICAL EXAM: VS: Blood pressure is 110/69 pulse 69 respirations 18 temperature 98.8 and Fahrenheit height is 5 foot 10 inches weight is 186 pounds. PE: PHYSICAL EXAMINATION: GENERAL: The patient is awake, alert, oriented, appropriate, very pleasant in demeanor, patient accompanied by his . HEENT: Shows normocephalic, atraumatic. Extraocular movements are intact and symmetrical. Oral cavity: Mucous membranes moist and pink. NECK: Shows anterior throat supple without palpable lymphadenopathy noted. Swallow reflex symmetrical. CHEST: Shows normal on inspection. Breath sounds are clear bilaterally, distant but no rales rhonchi or wheeze auscultated. HEART: Shows S1, S2 clear. No murmurs auscultated. ABDOMEN: Soft, nontender, nondistended. No palpable organomegaly is noted. No rebound or guarding demonstrated. BACK: Shows spine grossly in the midline. Normal-appearing cervical lordotic curvature. There is increased thoracic kyphosis, some flattening of the lumbar lordotic curvature. Lumbar paraspinous muscles show symmetrical on inspection, on palpation shows some moderate tenderness diffusely throughout the upper, middle and lower distribution of the paraspinous muscles bilaterally and also into the lower thoracic paraspinous musculature, firm and tender, but without specific trigger points, without radiation of pain. The patient has good rotational motion of the lumbar spine, both laterally as well as extension and flexion without significant difficulty. No tenderness over the spinous processes, sacrum or sacroiliac regions. EXTREMITIES: Lower extremities show deep tendon reflexes 2+ in the patellar and tendo calcaneus tendons. Motor exam is 4 on a scale of 5 with right dorsiflexion, extension, quadriceps and hamstring flexion and 4/5 on the left. Peripheral pulses are 1+ posterior tibial. No peripheral edema is noted bilaterally. Lower extremities are warm and dry to touch, equal in color and appearance. Straight leg raise noted to be negative bilaterally. Gaenslen's and Hugo's maneuvers are negative bilaterally as well. The patient is able to stand, stand on his toes without significant difficulty but walks with a slight shuffling gait not appear to favor the right or left lower extremity significantly is not use any assistive devices to ambulate such as canes or walkers. SKIN: Shows warm and dry, good turgor. No edema. No sores, rashes or bruising throughout. IMPRESSION: Impression: 85-year-old male with long history low back pain bilateral lower extremity pain or radicular fashion MRI scan lumbar spine as noted Hearing loss Heart disease with pacemaker Plan: Options discussed with patient patient spouse who accompanied him his visit today including continued physical therapies chiropractic treatment as well as medication management and interventional techniques. Patient will pursue interventional techniques. We discussed a lumbar epidural steroid injections description as well as anatomical models to describe the procedure. Risks were discussed including but not limited to: Bleeding, infection, possibility of epidural hematoma and subsequent neurological compromise, dural puncture, headaches, spinal cord and/or nerve damage, side effects of steroid medication, and poor results regarding pain control. Patient understands and wished to proceed. Patient will return to clinic in approximate 2 weeks for follow-up, was counseled return appointment, activity level, and side effects to be aware of. Procedure is lumbar epidural steroid injection under local anesthetic using sterile prep and drape at the L4-5 level using C-arm fluoroscopic guidance in both AP and lateral views medications injected is 120 mg Depo-Medrol +10mL preservative-free normal saline and 2 mL contrast- condition at discharge is stable patient tolerated procedure well had no complications. TERRI TRIMBLE MD Jul 13, 2021 12:56
== END | disposition home or self-care (01) ==
LOC: PNCL 11:35
PROVIDERS: ATTEND Anesthesiology
DX: M54.5 Low back pain (principal); M51.16 Intervertebral disc disorders with radiculopathy, lumbar region; M48.061 Spinal stenosis, lumbar region without neurogenic claudication; M79.605 Pain in left leg; M79.604 Pain in right leg; K21.9 Gastro-esophageal reflux disease without esophagitis; Z87.891 Personal history of nicotine dependence; Z79.82 Long term (current) use of aspirin; Z79.899 Other long term (current) drug therapy; Z98.890 Other specified postprocedural states
CPT/HCPCS: 62323; J1040; Q9965

== ENCOUNTER → 2021-08-06 | Outpatient (CLI) | payer MEDICARE, OTHER ==
[~2021-08-06] MED LIST changes: +methylPREDNISolone ACETATE 40 MG/ML VIAL. ONE
--- NOTE | 2021-08-06 09:21 | PDOC ---
Progress Note - Pain Clinic Date of Service: DOS: DATE: 08/06/21 TIME: 09:18 Diagnosis: Dx: Lumbar radiculopathy with lumbar degenerative disease and lumbar spinal stenosis History or Present Illness: HPI: 85-year-old male returns for follow-up status post lumbar epidural steroid injection x1. Patient reports about 50% improvement in low back and bilateral lower extremity pain. Patient reports initially doing much better with increased distance walking doing household activities travel with greater ease and comfort sleeping much better doing household activities with much greater ease patient reports pain returning now to moderate extent in the low back and his bilateral lower extremities posterior gluteus posterior lateral thigh lateral anterior thigh anterior medial thighs right essentially equal to left patient reports his pain is a 3 at its worst in the past week is 0 its least 0 on average but is a 0 today patient reports its worse with standing and walking while he is sitting rating his pain today the pain is very tolerable patient reports no bowel or bladder incontinence no motor or sensory deficits. Physical Exam: VS: Blood pressure is 135/76 pulse 69 respirations 18 temperature 98.1 F height is 5 feet 9 inches weight is 187 pounds PE: PHYSICAL EXAMINATION: GENERAL: The patient is awake, alert, oriented, appropriate, very pleasant in demeanor HEENT: Shows normocephalic, atraumatic. Extraocular movements are intact and symmetrical. Oral cavity: Mucous membranes moist and pink. NECK: Shows anterior throat supple without palpable lymphadenopathy noted. Swallow reflex symmetrical. CHEST: Shows normal on inspection. Breath sounds are clear bilaterally, distant but no rales or rhonchi. HEART: Shows S1, S2 clear. No murmurs auscultated. ABDOMEN: Soft, nontender, nondistended, obese. No palpable organomegaly is noted. BACK: Shows spine grossly in the midline. Normal-appearing cervical lordotic curvature. There is increased thoracic kyphosis, some flattening of the lumbar lordotic curvature. Lumbar paraspinous muscles show symmetrical on inspection, on palpation shows some moderate tenderness diffusely throughout the upper, middle and lower distribution of the paraspinous muscles without specific trigger points, without radiation of pain. The patient has good rotational motion of the lumbar spine, both laterally as well as extension and flexion without significant difficulty. No tenderness over the spinous processes, sacrum or sacroiliac regions. EXTREMITIES: Lower extremities show deep tendon reflexes 2+ in the patellar and tendo calcaneus tendons. Motor exam is 4 on a scale of 5 with right dorsiflexion, extension, quadriceps and hamstring flexion and 4/5 on the left. Peripheral pulses are 1+ posterior tibial. 1+ peripheral edema is noted bilaterally. Lower extremities are warm and dry to touch, equal in color and appearance. SKIN: Shows warm and dry, good turgor. No edema. No sores, rashes or bruising throughout. Procedure: Procedure: Options were discussed with patient. Patient chart reviewed his current medication regimen updated current review of systems updated today as well. We will proceed with a lumbar epidural steroid injection today with fluoroscopic guidance. Risks were discussed including but not limited to: Bleeding, infection, possibility of epidural hematoma and subsequent neurological compromise, dural puncture, headaches, spinal cord and/or nerve damage, side effects of steroid medication, and poor results regarding pain control. Patient understands and wished to proceed. Patient return to clinic in approximate 2 weeks for follow-up, was counseled return appointment, activity level, and side effects beware of. Medication Injected: Med Injected: Procedure is lumbar epidural steroid injection under local anesthetic using sterile prep and drape at the L4-5 level using C-arm fluoroscopic guidance in both AP and lateral views medications injected is 120 mg Depo-Medrol +10mL preservative-free normal saline and 2 mL contrast- condition at discharge is stable patient tolerated procedure well had no complications. Condition at Discharge: Condition at Discharge: Condition at discharge stable, patient tolerated procedure well had no complications. TERRI TRIMBLE MD Aug 06, 2021 09:21
--- NOTE | 2021-08-06 09:22 | PDOC4 ---
Procedure Note: ICD 10 Code: ICD 10 Code: M54.16 M4 8.06 M51.36 Procedure Note: Patient was consented for lumbar epidural steroid injection with fluoroscopic guidance. Risks were discussed including but not limited to: Bleeding, infection, possibility of epidural hematoma and subsequent neurological compromise, dural puncture, headaches, spinal cord and/or nerve damage, side effects of steroid medication, and poor results regarding pain control. Patient understands and wished to proceed. Procedure is lumbar epidural steroid injection under local anesthetic using vidal rile prep and drape at the L4-5 level using C-arm fluoroscopic guidance in both AP and lateral views medications injected is 120 mg Depo-Medrol +10mL preservative-free normal saline and 2 mL contrast- condition at discharge is stable patient tolerated procedure well had no complications. TERRI TRIMBLE MD Aug 06, 2021 09:21
== END | disposition home or self-care (01) ==
LOC: PNCL 08:28
PROVIDERS: ATTEND Anesthesiology
DX: M51.16 Intervertebral disc disorders with radiculopathy, lumbar region (principal); M48.061 Spinal stenosis, lumbar region without neurogenic claudication; K21.9 Gastro-esophageal reflux disease without esophagitis; Z87.891 Personal history of nicotine dependence; Z79.82 Long term (current) use of aspirin; Z79.899 Other long term (current) drug therapy; Z98.890 Other specified postprocedural states
CPT/HCPCS: 62323; J1030; J1040; Q9965

== ENCOUNTER → 2021-08-25 | Outpatient (CLI) | payer MEDICARE, OTHER ==
--- NOTE | 2021-08-25 09:21 | PDOC ---
Progress Note - Pain Clinic Date of Service: DOS: DATE: 08/25/21 TIME: 09:18 Diagnosis: Dx: Lumbar radiculopathy with lumbar degenerative disc disease and lumbar spinal stenosis History or Present Illness: HPI: 85-year-old male returns for follow-up status post lumbar epidurals or injection x2. Patient reports about 50% improvement after the last injection still pain in the low back and bilateral lower extremities mostly the posterior gluteus posterior lateral thighs anterior thighs mostly in the back however since chief complaint patient reports pain is much better is to increase activity doing household activities walking with greater ease and comfort travel with greater ease as well and sleeping better patient reports his pain is a 2 on a scale of 10 is worst 0 its least one is average is a 1 today patient ports aching dull can be burning and constant at times mostly dull and aching in the low back itself. Patient reports no motor or sensory deficits no bowel or bladder incontinence. Patient reports a new finding of leg cramps however been significant now getting worse patient is taking magnesium as well as donepezil gabapentin and melatonin also 81 mg aspirin and is added tonic water at bedtime which seems to be helping the cramps but they are still fairly significant and both the legs especially the right one. Physical Exam: VS: Blood pressure is 120/60 pulse 50 respirations 18 temperature 98.5 F weight is 184 pounds PE: PHYSICAL EXAMINATION: GENERAL: The patient is awake, alert, oriented, appropriate, very pleasant in demeanor HEENT: Shows normocephalic, atraumatic. Extraocular movements are intact and symmetrical. Patient wearing eyeglasses. Oral cavity: Mucous membranes moist and pink. NECK: Shows anterior throat supple without palpable lymphadenopathy noted. Swallow reflex symmetrical. CHEST: Shows normal on inspection. Breath sounds are clear bilaterally, distant but no rales or rhonchi. HEART: Shows S1, S2 clear. No murmurs auscultated. ABDOMEN: Soft, nontender, nondistended. No palpable organomegaly is noted. BACK: Shows spine grossly in the midline. Normal-appearing cervical lordotic curvature. There is slightly increased thoracic kyphosis, some minor flattening of the lumbar lordotic curvature. Lumbar paraspinous muscles show symmetrical on inspection, on palpation shows some moderate tenderness diffusely throughout the upper, middle and lower distribution of the paraspinous muscles, but without specific trigger points, without radiation of pain. The patient has good rotational motion of the lumbar spine, both laterally as well as extension and flexion without significant difficulty. No tenderness over the spinous processes, sacrum or sacroiliac regions. EXTREMITIES: Lower extremities show deep tendon reflexes 2+ in the patellar and tendo calcaneus tendons. Motor exam is 4 on a scale of 5 with right dorsiflexion, extension, quadriceps and hamstring flexion and 4/5 on the left. Peripheral pulses are 1 posterior tibial. No peripheral edema is noted bilaterally. Lower extremities are warm and dry to touch, equal in color and appearance. SKIN: Shows warm and dry, good turgor. No edema. No sores, rashes or bruising throughout. Procedure: Procedure: Options discussed with patient. Patient's old chart was reviewed his current medication regimen updated current review of systems updated today as well. We will proceed with a lumbar epidural steroid injection with fluoroscopic guidance. Risks were discussed including but not limited to: Bleeding, infection, possibility of epidural hematoma and subsequent neurological compromise, dural puncture, headaches, spinal cord and/or nerve damage, side effects of steroid medication, and poor results regarding pain control. Patient understands and wished to proceed. Patient return to the clinic in approximate 2 weeks for follow-up, was counseled return appointment, typical, and side effects to be aware of. Medication Injected: Med Injected: Procedure is lumbar epidural steroid injection under local anesthetic using sterile prep and drape at the L4-5 level using C-arm fluoroscopic guidance in both AP and lateral views medications injected is 120 mg Depo-Medrol +10mL preservative-free normal saline and 2 mL contrast- condition at discharge is stable patient tolerated procedure well had no complications. Condition at Discharge: Condition at Discharge: Condition at discharge is stable, patient tolerated procedure well and had no complications. TERRI TRIMBLE MD Aug 25, 2021 09:21
--- NOTE | 2021-08-25 09:22 | PDOC4 ---
Procedure Note: ICD 10 Code: ICD 10 Code: M54.16 M4 8.06 M51.36 Procedure Note: Patient was consented for lumbar epidural steroid injection with fluoroscopic guidance. Risks were discussed including but not limited to: Bleeding, infection, possibility of epidural hematoma and subsequent neurological compromise, dural puncture, headaches, spinal cord and/or nerve damage, side effects of steroid medication, and poor results regarding pain control. Patient understands and wished to proceed. Procedure is lumbar epidural steroid injection under local anesthetic using vidal rile prep and drape at the L4-5 level using C-arm fluoroscopic guidance in both AP and lateral views medications injected is 120 mg Depo-Medrol +10mL preservative-free normal saline and 2 mL contrast- condition at discharge is stable patient tolerated procedure well had no complications. TERRI TRIMBLE MD Aug 25, 2021 09:22
== END | disposition home or self-care (01) ==
LOC: PNCL 08:48
PROVIDERS: ATTEND Anesthesiology
DX: M51.16 Intervertebral disc disorders with radiculopathy, lumbar region (principal); M48.061 Spinal stenosis, lumbar region without neurogenic claudication; K21.9 Gastro-esophageal reflux disease without esophagitis; Z79.82 Long term (current) use of aspirin; Z79.899 Other long term (current) drug therapy; Z98.890 Other specified postprocedural states; Z87.891 Personal history of nicotine dependence
CPT/HCPCS: 62323; J1030; J1040; Q9965

== ENCOUNTER 2021-08-30 04:35 | Emergency (ER) | payer MEDICARE, OTHER ==
[~2021-08-30] VITALS: Ht 172.7 cm; Wt 84.9 kg
[~2021-08-30 04:35] MED LIST changes: -IOHEXOL 180 MG/ML 10 ML VIAL. ONE; -methylPREDNISolone ACETATE 40 MG/ML VIAL. ONE; -methylPREDNISolone ACETATE 80 MG/ML VIAL. ONE
--- NOTE | 2021-08-30 05:01 | PHYS DOC ---
Past Medical History Past Medical History: CAD, Dementia (SIDDHARTHA ASHLEY MD) Past Surgical History: Other Additional Past Surgical Histo: cardiac cath with stent; R shoulder, L hand (SIDDHARTHA ASHLEY MD) Smoking Status: Former Smoker Alcohol Use: None Drug Use: None (SIDDHARTHA ASHLEY MD) General Adult EDM: Chief Complaint: ABDOMINAL PAIN HPI: HPI: Patient is a 85 year old male with history of low back pain, CAD, dementia who presents with his who are both concerned after he had a bowel movement while asleep tonight. He thinks he may have been incontinent of urine as well, but is unsure. This is never happened before. Denies any abdominal pain, nausea, vomiting, blood in stool, dysuria, fever/chills. He is treated for low back pain at the pain clinic here and got some sort of injection in his back (they are both unclear what) last week. Records show it was a lumbar epidural steroid injection. Denies any increasing back pain, saddle anesthesia, lower extremity weakness. He has been dealing with lower extremity cramps for several weeks, and they bought some supplements that were recommended by Dr. Villa. They are mostly magnesium supplements, but one of them does contain lactose. He had previously been intolerant of dairy, and this was removed from his diet in the past. He has recently been constipated and had taken Dulcolax last night as well. (SIDDHARTHA ASHLEY MD) Review of Systems: Review of Systems: Constitutional: Denies fever or chills. [] Eyes: Denies change in visual acuity. [] HENT: Denies nasal congestion or sore throat. [] Respiratory: Denies cough or shortness of breath. [] Cardiovascular: Denies chest pain or edema. [] GI: Reports fecal incontinence denies abdominal pain, nausea, vomiting, bloody stools or diarrhea. [] : Denies dysuria. [] Musculoskeletal: Denies back pain or joint pain. Reports leg cramps. [] Integument: Denies rash. [] Neurologic: Denies headache, focal weakness or sensory changes. [] Endocrine: Denies polyuria or polydipsia. [] Lymphatic: Denies swollen glands. [] Psychiatric: Denies depression or anxiety. [] (SIDDHARTHA ASHLEY MD) Heart Score: C/O Chest Pain: No Risk Factors: Risk Factors: DM, Current or recent (<one month) smoker, HTN, HLP, family history of CAD, obesity. Risk Scores: Score 0 - 3: 2.5% MACE over next 6 weeks - Discharge Home Score 4 - 6: 20.3% MACE over next 6 weeks - Admit for Clinical Observation Score 7 - 10: 72.7% MACE over next 6 weeks - Early Invasive Strategies (SIDDHARTHA ASHLEY MD) Allergies: Allergies: Allergies Coded Allergies Type Severity Reaction Last Updated Verified No Known Drug Allergies 07/06/19 No (SIDDHARTHA ASHLEY MD) Physical Exam: PE: Constitutional: Well developed, well nourished, no acute distress, non-toxic appearance. [] HENT: Normocephalic, atraumatic, bilateral external ears normal, oropharynx moist, no oral exudates, nose normal. [] Eyes: PERRLA, EOMI, conjunctiva normal, no discharge. [] Neck: Normal range of motion, no tenderness, supple, no stridor. [] Cardiovascular:Heart rate regular rhythm, no murmur [] Lungs & Thorax: Bilateral breath sounds clear to auscultation [] Abdomen: soft, nontender, small non-tender ventral hernia. Skin: Warm, dry, no erythema, no rash. [] Back: No tenderness, no CVA tenderness. [] Extremities: No tenderness, no cyanosis, no clubbing, ROM intact, no edema. [] Neurologic: Alert and oriented X 3, repetitive speech at times, normal motor function, normal sensory function, no focal deficits noted. [] Specifically 5/5 strength bilaterally in: Hip flexion Knee flexion/extension Plantar flexion/dorsiflexion of the foot Extension of the great toe Normal sensation of the saddle region (SIDDHARTHA ASHLEY MD) EKG: EKG: [] (SIDDHARTHA ASHLEY MD) Radiology/Procedures: Radiology/Procedures: [] (SIDDHARTHA ASHLEY MD) Radiology/Procedures: IMAGING REPORT Signed PATIENT: JESUS HOBBS ACCOUNT: [id number] : 1935 LOCATION: ER AGE: 85 SEX: M EXAM STATUS: REG ER ORD. PHYSICIAN: WESLEY BOURGEOIS DO REASON: low back pain s/p epidural injections and incontinence PROCEDURE: CT LUMBAR SPINE W/CONTRAST CT LUMBAR SPINE W dated 08/30/2021 6:37 AM Indication:Reason: low back pain s/p epidural injections and incontinence / Spl. Instructions: IV omni 300 60 mls / History: Comparison: MRI 05/19/2021. Technique: Helical CT images were performed. 60 mL Omnipaque 300 was given. Sagittal and coronal reconstructions were obtained. One or more of the following individualized dose reduction techniques were utilized for this examination: 1. Automated exposure control 2. Adjustment of the mA and/or kV according to patient size 3. Use of iterative reconstruction technique Findings: Alignment is normal. There is no apparent fracture or bony destructive process. Evaluation of the soft tissue components is limited without intrathecal contrast. There appears to be at least some degree of disc protrusion at L2-3, L3-4, L4-5 and L5-S1. There is suggestion of severe spinal stenosis at L4-5 and moderate narrowing at L3-4 and L2-3. No epidural collection is evident. IMPRESSION: Spinal stenosis. No acute abnormality is identified. Electronically signed by: Malia Henderson Jr., MD (08/30/2021 7:17 AM) [id number] DICTATED and SIGNED BY: MALIA HENDERSON Jr, MD DATE: 08/30/21 [id number] (WESLEY BOURGEOIS DO) Course & Med Decision Making: Course & Med Decision Making Pertinent Labs and Imaging studies reviewed. (See chart for details) Patient 85-year-old male with history of dementia who presents with his are both concerned after he had an episode of fecal incontinence in bed. His only other complaint is of leg cramps recently. He is well-appearing without abdominal pain or tenderness. Normal external rectal exam. Normal lower extremity motor exam. Have a low suspicion for acute surgical intra-abdominal pathology. Given his recent lumbar steroid injection on 08/25 considered acute spinal pathology such as spinal epidural abscess or epidural hematoma, however he has no back pain, lower extremity weakness, or saddle anesthesia to suggest acute spinal compression syndrome. Will hold on neuroimaging for now. He has been taking magnesium supplements that contain lactose, and he has previously been shown to be lactose intolerant which may have contributed. We will check basic labs including electrolytes including magnesium and cell counts for an etiology to his leg cramps. [id number] Patient signed out to oncoming physician at shift change 0600 with labs and reevaluation pending to determine most appropriate disposition and need for further work-up such as neuroimaging. 06 (SIDDHARTHA ASHLEY MD) Course & Med Decision Making I received signout at shift change from Dr. Ashley regarding chronic low back pain with new onset bowel incontinence. Patient does have a history of dementia and presents to the ED with his , (patient consents to his/her/their knowledge and involvement in pts' medical care). Patient reports he has had irregular bowel movements for the past 4 months, described as "abnormal" hand tool lapper-colored stools and believes his urine and stool are mixed. History of a colonoscopy more than 5 years ago. No associated melena or hematochezia. Also reports lower extremity cramping for the past few months and is taking a magnesium supplement, stating this is alleviating his symptoms. History of epidural abscess on August 25. I discussed with patient and his concern for elevated magnesium level and discouraged [id number] supplements/outpatient follow-up to have magnesium rechecked. I also encouraged GI follow-up regarding irregular bowel movements, may benefit from outpatient n onemergent colonoscopy. CT imaging consistent with lumbar spinal stenosis and disc protrusions, patient with no radiculopathy. Patient with no associated lower extremity weakness, saddle anesthesia, recurrent bowel or urinary incontinence or sensory deficits. Patient protecting his airway with no respiratory depression. Will discharge home with strict ED return precautions were given for saddle anesthesia, weakness, sensory deficits, ataxia or repeat incontinence. Encouraged urgent outpatient follow-up with PMD and GI. Life- threatening processes were considered but are low suspicion at this time, given history, physical exam and ED workup. Pt was educated on all prescription medications and adverse effects. All patient's questions were answered and pt was stable at time of discharge. Life/limb-threatening differential includes but is not limited to, aortic dissection/aneurysm, cauda equina syndrome, transverse myelitis, spinal cord/epidural compression syndromes, discitis, spinal stenosis, epidural abscess or hematoma, osteomyelitis, disc herniation, surgical abdomen, stable or unstable fracture, renal/ureteral colic, sepsis, meningitis, musculoskeletal injury, traumatic injury, intraabdominal/retroperitoneal or pelvic bleeding. I have spoken with the patient and/or caregivers. I explained the patient's condition, diagnoses and treatment plan based on the information available to me at this time. I have answered the patient and/or caregiver's questions and addressed any concerns. The patient and/or caregivers have a good understanding of patient's diagnosis, condition and treatment plan as can be expected at this point. Vital signs have been stable. Patient's condition is stable and appropriate for discharge from the emergency department. Patient will pursue further outpatient evaluation with primary care physician or other designated or consulting physician as outlined in the discharge instructions. The patient and/or caregivers are agreeable to this plan of care and follow-up instructions have been explained in detail. The patient and/or caregivers have received these instructions in written form and have expressed an understanding of the discharge instructions. The patient and/or caregivers are aware that any significant change of condition or worsening of symptoms should prompt immediate return to this or the closest emergency department or call to 911. (WESLEY BOURGEOIS DO) Dragon Disclaimer: Dragon Disclaimer: This electronic medical record was generated, in whole or in part, using a voice recognition dictation system. (SIDDHARTHA ASHLEY MD) Departure Departure Impression: Primary Impression: Fecal incontinence Additional Impressions: Hypermagnesemia Macrocytic anemia Disposition: 01 HOME / SELF CARE / HOMELESS Condition: STABLE Referrals: SAM JUNIOR MD (PCP) Follow-up for repeat magnesium level, please discontinue [id number] magnesium supplementation Patient Instructions: Fecal Incontinence, Magnesium Additional Instructions: FOLLOW UP WITH GASTROENTEROLOGY: FOR DEFINITIVE MANAGEMENT of irregular bowel movements [facility] [address] [place] [address] SIDDHARTHA ASHLEY MD Aug 30, 2021 05:01 WESLEY BOURGEOIS DO Aug 30, 2021 08:12
[2021-08-30 05:33] LABS: BASO # 0.2 x10^3/uL (0.0-0.2); BASO % 2 % (0-3); EOS # 0.4 x10^3/uL (0.0-0.7); EOS % 3 % (0-3); HEMOGLOBIN 10.1 g/dL (13.0-17.5); LYMPH # 2.2 x10^3/uL (1.0-4.8); LYMPH % 18 % (24-48); MEAN CORPUSCULAR HEMOGLOBIN 36 pg (25-35); MEAN CORPUSCULAR HGB CONC 34 g/dL (31-37); MEAN CORPUSCULAR VOLUME 109 fL (79-100); MONO % 8 % (0-9); NEUT # 8.5 x10^3/uL (1.8-7.7); NEUT % 70 % (31-73); PLATELET COUNT 322 x10^3/uL (140-400); RED BLOOD COUNT 2.76 x10^6/uL (4.30-5.70); RED CELL DISTRIBUTION WIDTH 22.2 % (11.5-14.5); WHITE BLOOD COUNT 12.3 x10^3/uL (4.0-11.0)
[2021-08-30 05:40] LABS: CALCIUM 8.2 mg/dL (8.5-10.1); CREATININE 1.2 mg/dL (0.7-1.3); GFR 57.4; POTASSIUM 3.9 mmol/L (3.5-5.1)
[2021-08-30 05:45] LABS: ALBUMIN 3.4 g/dL (3.4-5.0); ALBUMIN/GLOBULIN RATIO 1.2 (1.0-1.7); MAGNESIUM 2.9 mg/dL (1.8-2.4); TOTAL BILIRUBIN 0.8 mg/dL (0.2-1.0); TOTAL PROTEIN 6.3 g/dL (6.4-8.2)
[2021-08-30] MEDS ORDERED: CONTRAST GIVEN. MC PRN (06:45)
[2021-08-30] MEDS ORDERED: IOHEXOL 300 MG/ML 100ML VIAL. IV ONE (06:45)
--- NOTE | 2021-08-30 07:19 | RAD ---
CT LUMBAR SPINE W dated 08/30/2021 6:37 AM Indication:Reason: low back pain s/p epidural injections and incontinence / Spl. Instructions: IV omn i 300 60 mls / History: Comparison: MRI 05/19/2021. Technique: Helical CT images were performed. 60 mL Omnipaque 300 was given. Sagittal and coronal danna nstructions were obtained. One or more of the following individualized dose reduction techniques were utilized for this examinat ion: 1. Automated exposure control 2. Adjustment of the mA and/or kV according to patient size 3. Use of iterative reconstruction technique Findings: Alignment is normal. There is no apparent fracture or bony destructive process. Evaluation of the sof t tissue components is limited without intrathecal contrast. There appears to be at least some degree of disc protrusion at L2-3, L3-4, L4-5 and L5-S1. There is suggestion of severe spinal stenosis at L 4-5 and moderate narrowing at L3-4 and L2-3. No epidural collection is evident. IMPRESSION: Spinal stenosis. No acute abnormality is identified. Electronically signed by: Zack Henderson Jr., MD (08/30/2021 7:17 AM) [id number]
[2021-08-30 08:20] VITALS: BP 124/57
[2021-08-30 08:38] LABS: PLT ESTIMATE ADEQUATE (ADEQUATE); POLYCHROMASIA SLIGHT
== END 2021-08-30 08:28 | disposition home or self-care (01) ==
LOC: ER 04:35
DX: R15.9 Full incontinence of feces (principal); E83.41 Hypermagnesemia; D53.9 Nutritional anemia, unspecified; G89.29 Other chronic pain; F03.90 Unspecified dementia, unspecified severity, without behavioral disturbance, psychotic disturbance, mood disturbance, and anxiety; I25.10 Atherosclerotic heart disease of native coronary artery without angina pectoris; Z87.891 Personal history of nicotine dependence; Z95.5 Presence of coronary angioplasty implant and graft
CPT/HCPCS: 36415; 72132; 80053; 83735; 85025; 86140; 99285; Q9967

== ENCOUNTER → 2021-09-28 | Outpatient (CLI) | payer MEDICARE, OTHER ==
[2021-08-30 08:20] VITALS: BP 124/57
--- NOTE | 2021-09-28 14:10 | PDOC ---
Progress Note - Pain Clinic Date of Service: DOS: DATE: 09/28/21 TIME: 14:07 Diagnosis: Dx: Lumbar radiculopathy with lumbar degenerative disease and lumbar spinal stenosis History or Present Illness: HPI: 85-year-old male returns for follow-up status post lumbar epidural steroid injection last seen August 25, 2021 patient reports a 50% improvement in the low back and the right lower extremity patient reports it is still present but getting much better patient reports his legs feel weak and cold at times: Feel cold not to the touch patient reports cramping in the legs which is much better at night now and he is now sleeping through the night which she is very pleased with. Patient reports no new motor or sensory deficits no bowel or bladder incontinence rates pain is a 5 on a scale of 10 is worst and on average/and is a 5 today patient scribes aching worse with getting up off of toilet when sitting and walking or standing for prolonged periods patient reports otherwise does fairly well with sitting on soft surfaces and supportive cares as well as sleeping at night and laying down. Patient reports no bowel or bladder incontinence. Physical Exam: VS: Of motion is 139/73 pulse 50 respirations 18 temperature 90.2 F height is 5 foot 9 inches weight is 182 pounds PE: PHYSICAL EXAMINATION: GENERAL: The patient is awake, alert, oriented, appropriate, very pleasant in demeanor, patient [place] by his HEENT: Shows normocephalic, atraumatic. Extraocular movements are intact and symmetrical. Oral cavity: Mucous membranes moist and pink. NECK: Shows anterior throat supple without palpable lymphadenopathy noted. Swallow reflex symmetrical. CHEST: Shows normal on inspection. Breath sounds are clear bilaterally, distant but no rales or rhonchi. HEART: Shows S1, S2 clear. No murmurs auscultated. ABDOMEN: Soft, nontender, nondistended. No palpable organomegaly is noted. BACK: Shows spine grossly in the midline. Normal-appearing cervical lordotic curvature. There is increased thoracic kyphosis, some flattening of the lumbar lordotic curvature. Lumbar paraspinous muscles show symmetrical on inspection, on palpation shows some moderate tenderness diffusely throughout the upper, middle and lower distribution of the paraspinous muscles without specific trigger points, without radiation of pain. The patient has good rotational motion of the lumbar spine, both laterally as well as extension and flexion without significant difficulty. No tenderness over the spinous processes, sacru m or sacroiliac regions. EXTREMITIES: Lower extremities show deep tendon reflexes 2+ in the patellar and tendo calcaneus tendons. Motor exam is 4 on a scale of 5 with right dorsiflexion, extension, quadriceps and hamstring flexion and 4/5 on the left. Peripheral pulses are 1+ posterior tibial. 1+ peripheral edema is noted bilaterally, the ankles. Lower extremities are warm and dry to touch, equal in color and appearance. SKIN: Shows warm and dry, good turgor. No edema. No sores, rashes or bruising throughout. Procedure: Procedure: Options discussed with the patient. Patient told chart was reviewed his current medication regimen updated current review of systems updated today as well. We will call in a Medrol Dosepak for the patient as he is too early for additional intervention at this time, also will order physical therapy with stretching st rength exercise as well as a heat and massage techniques for the lumbar paraspinous musculature. Patient will follow up after physical therapy. Patient given instructions well side effects aware with the Medrol Dosepak. Medication Injected: Med Injected: None Condition at Discharge: Condition at Discharge: Condition at discharge is stable. TERRI TRIMBLE MD Sep 28, 2021 14:10
== END | disposition home or self-care (01) ==
LOC: PNCL 13:27
PROVIDERS: ATTEND Anesthesiology
DX: M51.16 Intervertebral disc disorders with radiculopathy, lumbar region (principal); M48.061 Spinal stenosis, lumbar region without neurogenic claudication; K21.9 Gastro-esophageal reflux disease without esophagitis; Z87.891 Personal history of nicotine dependence; Z79.82 Long term (current) use of aspirin; Z79.899 Other long term (current) drug therapy; Z98.890 Other specified postprocedural states
CPT/HCPCS: 99212; G0463

== ENCOUNTER → 2022-02-08 | Outpatient (CLI) | payer MEDICARE, OTHER ==
[~2022-02-08] MED LIST changes: +CYAN-9 PO; +DOCU-109 PO; +HYDR-2761 PO; +ISOS30TA19 PO; +METH-562 PO; +METO25TA4 PO; +OXYC1TAB15 PO; +QUET25TA3 PO
== END ==
LOC: SURGPAT 14:48
PROVIDERS: ATTEND Neurological Surgery
DX: Z01.812 Encounter for preprocedural laboratory examination (principal); M48.062 Spinal stenosis, lumbar region with neurogenic claudication
CPT/HCPCS: 87641

== ENCOUNTER 2022-02-15 07:02 | Observation (INO) | payer MEDICARE, OTHER ==
[2022-02-08 15:00] VITALS: BP 119/56
--- NOTE | 2022-02-12 16:48 | PREOP HP ---
DATE OF SERVICE: 02/15/2022 PREOPERATIVE HISTORY AND PHYSICAL HISTORY OF PRESENT ILLNESS: The patient is a pleasant 86-year-old man who has difficulty with low back pain and stiffness in his lower back. He has feelings of weakness in his legs with walking. He feels like his legs can give out at times. He has not fallen. He takes Tylenol as needed. He had lumbar epidural steroid injections in the past with no significant relief. He has been cleared by his power tool repairer and would like to proceed with surgical intervention. CURRENT MEDICATIONS: Tylenol, collagen, vitamin B12, aspirin, donepezil, Carafate, ondansetron, Protonix. PAST MEDICAL HISTORY: Alzheimer's disease, anemia, gout, pacemaker. PAST SURGICAL HISTORY: Pacemaker, skin cancer, cardiac stents. FAMILY HISTORY: Alzheimer's disease and heart disease. SOCIAL HISTORY: Retired, , nonsmoker. ALLERGIES: No known drug allergies. REVIEW OF SYSTEMS: A 12-point review of systems was performed and is noncontributory except that mentioned above. PHYSICAL EXAMINATION: GENERAL: Alert, pleasant, in no acute distress. HEENT: Head is normocephalic, atraumatic. SKIN: Warm and dry. MUSCULOSKELETAL: Lumbar paraspinal muscle bulk is normal, restricted range of motion of the lumbar spine, [id number] tenderness of the lower lumbar spine with palpation, normal range of motion of the lower extremities bilaterally. EXTREMITIES: No clubbing, cyanosis or edema. NEUROLOGIC: Alert and oriented x 3. Strength is 5/5 in the bilateral lower extremities, sensory was intact to light touch in the lower extremities bilaterally, reflexes were present and symmetric in the bilateral lower extremities. There is a negative straight leg raising bilaterally. Normal gait. IMAGING: I reviewed his lumbar MRI scan from 05/2021. On that study, there was moderately severe lumbar spinal stenosis present at L4-5. ASSESSMENT AND PLAN: He has significant stenosis at L4-5, which is affecting his ability to walk. He has been cleared by Cardiology. I recommended a micro decompressive surgery at L4-5 to see if this would help him. We again reviewed the technique as well as the risk and the expected postoperative course. He and his understand and would like to proceed. GOMEZ/DOROTEO/YOEL DR: Torres TID: [id number]
[2022-02-15] VITALS (9 sets, daily range): BP systolic 103–161; BP diastolic 47–70
[~2022-02-15] VITALS: Ht 175.3 cm; Wt 84.5 kg
[~2022-02-15 07:02] MED LIST changes: -CYAN-9 PO; +DEXAMETHASONE SOD PHOS 4 MG/ML VIAL ONE; -DOCU-109 PO; -HYDR-2761 PO; +HYDROmorphone 2 MG/ML INJ. IVP PRN; -ISOS30TA19 PO; +IV RINGERS,LACTATED 1000ML 1,000 ML IV SCH; +LIDOCAINE 2% PF 5 ML VIAL. ONE; -METH-562 PO; +MORPHINE SULFATE 2 MG/ML INJ. IVP PRN; +ONDANSETRON PF 4 MG/2 ML VIAL. ONE; -OXYC1TAB15 PO; +PHENYLEPHRINE 10 MG/ML VIAL. ONE; +PROCHLORPERAZINE 10 MG/2 ML VIAL. IVP PRN; +PROPOFOL 10 MG/ML (20ML) VIAL. IV ONE; +PROPOFOL 50 ML IV ONE; -QUET25TA3 PO; +REMIFENTANIL 2 MG VIAL. IV ONE; +ROCURONIUM 50 MG/5 ML VIAL. ONE; +ceFAZolin SODIUM 1 GM in IV NORMAL SALINE 1000ML BAG 1,000 ML IRR ONE; +fentaNYL PF VIAL 100 MCG/2 ML VIAL IVP PRN; +fentaNYL PF VIAL 100 MCG/2 ML VIAL ONE
[2022-02-15] MEDS ORDERED: THROMBIN TOPICAL 20,000 UNIT SPRAY.SYRN KIT TP ONE (07:15)
[2022-02-15] MEDS ORDERED: GELATIN SPONGE SIZE 100. ONE (07:15)
[2022-02-15] MEDS ORDERED: BUPIVACAINE-EPI 0.5% 30 ML VIAL KIT. ONE (07:15)
[2022-02-15] MEDS ORDERED: KETOROLAC 60 MG/2 ML VIAL. ONE (07:15)
[2022-02-15] MEDS ORDERED: PROPOFOL 50 ML IV ONE (08:08)
[2022-02-15] MEDS ORDERED: GLYCOPYRROLATE 1 MG/5 ML VIAL. ONE (08:45)
[2022-02-15] MEDS ORDERED: SEVOFLURANE 61 TO 120 MINUTES. IH ONE (08:45)
[2022-02-15] MEDS ORDERED: NEOSTIGMINE METHYLSULFATE 5 MG/5 ML SYRINGE. ONE (08:46)
[2022-02-15] MEDS ORDERED: HYDROcodone/APAP 5/325MG 1 TAB TABLET PO PRN (11:45)
[2022-02-15] MEDS ORDERED: fentaNYL PF VIAL 100 MCG/2 ML VIAL IVP PRN (11:45)
[2022-02-15] MEDS ORDERED: 0.9 % SODIUM CHLORIDE 10 ML DISP.SYRIN. IV PRN (11:45)
[2022-02-15] MEDS ORDERED: ACETAMINOPHEN 325 MG TABLET. PO PRN (11:45)
[2022-02-15] MEDS ORDERED: MAG HYDROX/ALUMINUM HYD/SIMETH 30 ML ORAL.SUSP PO PRN (11:45)
[2022-02-15] MEDS ORDERED: NALOXONE 0.4 MG/ML VIAL. IV PRN (11:45)
[2022-02-15] MEDS ORDERED: MAGNESIUM HYDROXIDE 2,400 MG/30 ML ORAL.SUSP. PO PRN (11:45)
[2022-02-15] MEDS ORDERED: diphenhydrAMINE HCL 25 MG CAPSULE PO PRN (11:45)
[2022-02-15] MEDS ORDERED: CALCIUM CARBONATE 500 MG TAB.CHEW PO PRN (11:45)
[2022-02-15] MEDS: ASPIRIN CHEWABLE 81 MG TABLET. PO SCH (12:00)
[2022-02-15] MEDS ORDERED: fentaNYL PF VIAL 100 MCG/2 ML VIAL ONE (12:43)
[2022-02-15] MEDS: ONDANSETRON ODT 4 MG TAB.RAPDIS. PO SCH ×2 (14:08→17:57)
--- NOTE | 2022-02-15 15:25 | OP ---
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 OPERATION PERFORMED: Bilateral hemilaminotomies with decompression of dura and nerve root L4-5, microdiscectomy L4-5 left. The operation was done with EMG monitoring, SSEP monitoring, fluoroscopy, microscopic dissection. SURGEON: Andrew Nina M.D. BLACK TOP ROLLER: HAMIDA Smith; assisted with the surgery. She assisted with the exposure, the bilateral microdecompression and discectomy as well as the closure. OPERATIVE INDICATIONS: The patient is a pleasant 86-year-old who developed intractable back and bilateral leg symptoms and limited ability to ambulate and had the above-mentioned findings on imaging studies. He did have moderately severe stenosis at L3-4, but the most severe was clearly at L4-5 and because of his age and overall health, I felt that a limited operation would be much safer for him. I therefore felt at L4-5 and should be decompressed. DESCRIPTION OF PROCEDURE: Following general endotracheal anesthesia, the patient was positioned prone on Hiren table. Lumbar region prepped and draped in the standard fashion. SYDNEY hose and AV impulse boots were applied for DVT prophylaxis. The microscope was draped, fluoroscopy was draped and brought into field. Monitoring was established. Ancef 2 grams was given less than 1 hour prior to initiation of surgery. Using fluoroscopic guidance, incision was made above and below the L4-5 interspace. I dissected down through skin and subcutaneous tissue, reflected the paraspinal muscles on the left side. I placed a Henderson microdisk retractor. I brought in the microscope and confirmed my position fluoroscopically. I then used a high speed air drill. I burred down a generous hemilaminotomy and partial foraminotomy. I then trimmed away the very thickened ligamentum flavum, exposing the dura and the exiting root. I retracted the dura and root medially. There was significant disc bulging and I incised the ligament and annulus and I performed a discectomy. Largely within the disc space was degenerated and absent. As I worked, I felt that the disc bulging decreased. I irrigated with antibiotic solution with Gelfoam and removed the retractor after I obtained hemostasis in the muscle. I then went to the opposite side and performed the identical surgery on the other side. On this side, there was no significant disc bulging; however, there was severe stenosis and I did peel away the very thickened ligamentum flavum and performed partial foraminotomy. As I worked, the region became very well decompressed. I was able to obtain excellent hemostasis. I then irrigated copiously and I closed the wound in layers with absorbable suture and skin was closed with 4-0 subcuticular stitch. I felt the surgery went very well. KAIN/YOEL/TREVOR DR: Ksenia TID: [id number] ABDIRASHID
[2022-02-15] MEDS: PANTOPRAZOLE 40 MG TABLET.DR. PO SCH (16:30)
[2022-02-15] MEDS: METHOCARBAMOL 750 MG TABLET PO PRN (17:57)
[2022-02-15] MEDS: MEMANTINE 10 MG TABLET. PO SCH (20:24)
[2022-02-15] MEDS: DOCUSATE SODIUM 100 MG CAPSULE. PO SCH (20:25)
[2022-02-15] MEDS: POTASSIUM CL 20MEQ D5-0.45NACL 1,000 ML IV SCH (20:32)
[2022-02-15] MEDS ORDERED: DONEPEZIL HCL 10 MG TABLET. PO SCH (21:00)
--- NOTE | 2022-02-15 21:15 | NUR ---
Patient became agitated with staff providing care. Patient's son wanting to stay to assist with Patient and keeping him calm. Jillian Raines RN(ground crew supervisor) notified and stated Patient's son was able to stay overnight.
[2022-02-16] MEDS: ONDANSETRON ODT 4 MG TAB.RAPDIS. PO SCH ×3 (00:14→12:00)
[2022-02-16] MEDS: POTASSIUM CL 20MEQ D5-0.45NACL 1,000 ML IV SCH (01:05)
[2022-02-16 03:13] VITALS: BP 97/32
[2022-02-16] MEDS: PANTOPRAZOLE 40 MG TABLET.DR. PO SCH (05:42)
[2022-02-16] MEDS: HYDROcodone/APAP 5/325MG 1 TAB TABLET PO PRN ×2 (05:49→13:03)
[2022-02-16 07:00] VITALS: BP 106/56
[2022-02-16] MEDS: ASPIRIN CHEWABLE 81 MG TABLET. PO SCH (08:04)
[2022-02-16] MEDS: DOCUSATE SODIUM 100 MG CAPSULE. PO SCH (08:04)
[2022-02-16] MEDS: METHOCARBAMOL 750 MG TABLET PO PRN (08:04)
[2022-02-16] MEDS: MEMANTINE 10 MG TABLET. PO SCH (08:05)
[2022-02-16 11:00] VITALS: BP 114/55
[2022-02-16] MEDS ORDERED: DOCU-109 PO (13:04)
[2022-02-16] MEDS ORDERED: METH-562 PO (13:04)
[2022-02-16] MEDS ORDERED: HYDR-2761 PO (13:04)
--- NOTE | 2022-02-16 13:09 | DISCH ---
DISCHARGE INSTRUCTIONS Condition on Discharge Condition on Discharge: Stable Activity After Discharge Activity Instructions for Disc: Activity as tolerated, Avoid exertion, Walk in house Other activity instructions: ambulation the only exercise permitted; gradually increase time and distanc Bathing Instructions: Shower-keep dressing dry, No Tub Bath until see Lifting Instructions after Dis: No heavy lifting, No pulling or pushing, Do not lift >10 pounds Exercise Instruction after Dis: Progress as tolerated Driving Instructions after Dis: Do not drive Weight Bearing Status after Di: No restrictions Diet after Discharge Diet after Discharge: Regular Diet Texture: Regular Liquid Texture: Thin Liquid Wound Incision Care Wound/Incision Care: Ice to area for comfort, Keep wound/cast CDI, Change dressing Other wound/incision instructi: m[place]hower 48 hrs after surgery; no direct water to incision; change dressin Checks after Discharge DC Comment: increase fruits, vegetables and fiber; attempt BM every other day Contacting the DRCristian after DC Call your doctor for: Concerns you may have Follow-Up Follow Up With: call [phone] for a 2 week post op appt with Dr. Brooks/Vielka Treatment/Equipment after DC Adaptive Equipment Issued: None Comment: may leave dressing off if no drainage; no antibiot YOUSUF BROOKS MD February 16, 2022 13:09
--- NOTE | 2022-02-17 16:21 | PATHOLOGY ---
[facility] Accession Number: [id number] . 01 Material submitted: . vertebral column - LUMBAR DECOMPRESSION . 01 Clinical history: . LUMBAR STENOSIS . 02 Diagnosis: Segments of fibrocartilaginous, fibroadipose, and skeletal muscle tissue and bone, lumbar decompression: - Degenerative changes of fibrocartilaginous tissue. (JPM:[facility]; 02/17/2022) [facility] 02/17/2022 1458 Local . 02 Comment: There is no evidence of an acute inflammatory process or malignancy. (JPM:[facility]; 02/17/2022) . 02 Electronically signed: . Lucas Gannon MD, Pathologist NPI- [id number] . 01 Gross description: . The specimen is received in formalin, labeled "Emeterio Cunningham, lumbar decompression". Received is a 5.0 x 3.0 x 0.8 cm aggregate of irregularly shaped, thorpe-white, fibrous soft tissue fragments, admixed with irregularly shaped, firm, thorpe-white bony fragments. The specimen is representatively submitted in cassettes A1 to A2, following decalcification. (JGG; 02/15/2022) JGG/JGG 02/15/2022 2313 Local . 02 Pathologist provided ICD-10: M51.36 . 02 CPT . 311838, [id number] Specimen Comment: A courtesy copy of this report has been sent to [phone], [phone] Specimen Comment: [id number] Specimen Comment: Report sent to / DR JUNIOR Specimen Comment: A duplicate report has been generated due to demographic updates. Performed at: [address], [place], [place] [id number] MD Thiago Ramirez MD Phone: [phone] Performed at: 02 [facility] [address] [place], [place] [id number] MD Luacs Gannon MD Phone: [phone]
== END 2022-02-16 14:38 | disposition home or self-care (01) ==
LOC: SURG 07:02 → 4 NORTH 11:45
PROVIDERS: ADMIT Neurological Surgery; ATTEND Neurological Surgery
DX: M48.062 Spinal stenosis, lumbar region with neurogenic claudication (principal); Z20.822 Contact with and (suspected) exposure to COVID-19; M54.50 Low back pain, unspecified; G30.9 Alzheimer's disease, unspecified; F02.80 Dementia in other diseases classified elsewhere, unspecified severity, without behavioral disturbance, psychotic disturbance, mood disturbance, and anxiety; D64.9 Anemia, unspecified; M10.9 Gout, unspecified; Z85.828 Personal history of other malignant neoplasm of skin; Z95.5 Presence of coronary angioplasty implant and graft
CPT/HCPCS: 63030; 63035; 88304; 88311; 96374; 97110; 97116; 97162; 97530; A4213; A4364; A4556; A4930; A6254; A6258; G0378; G0379; J0690; J1100; J1885; J2370; J2405; J2704; J2710; J3010; J3480; J3490; J7030; 76000; A4222; A4223; A4657

== ENCOUNTER 2022-02-22 04:48 | Inpatient (IN) | payer MEDICARE, OTHER ==
[~2022-02-22] VITALS: Ht 175.3 cm; Wt 86.0 kg
[2022-02-22 04:30] VITALS: BP 156/87
[~2022-02-22 04:48] MED LIST changes: -DEXAMETHASONE SOD PHOS 4 MG/ML VIAL ONE; +DOCU-109 PO; +HYDR-2761 PO; -HYDROmorphone 2 MG/ML INJ. IVP PRN; -IV RINGERS,LACTATED 1000ML 1,000 ML IV SCH; -LIDOCAINE 2% PF 5 ML VIAL. ONE; +METH-562 PO; -MORPHINE SULFATE 2 MG/ML INJ. IVP PRN; -ONDANSETRON PF 4 MG/2 ML VIAL. ONE; -PHENYLEPHRINE 10 MG/ML VIAL. ONE; -PROCHLORPERAZINE 10 MG/2 ML VIAL. IVP PRN; -PROPOFOL 10 MG/ML (20ML) VIAL. IV ONE; -PROPOFOL 50 ML IV ONE; -REMIFENTANIL 2 MG VIAL. IV ONE; -ROCURONIUM 50 MG/5 ML VIAL. ONE; -ceFAZolin SODIUM 1 GM in IV NORMAL SALINE 1000ML BAG 1,000 ML IRR ONE; -fentaNYL PF VIAL 100 MCG/2 ML VIAL IVP PRN; -fentaNYL PF VIAL 100 MCG/2 ML VIAL ONE
[2022-02-22] MEDS ORDERED: NON FORMULARY ITEM (Cranberry Extract (Cranberry) 250 MG) PO PRN (06:00)
[2022-02-22] MEDS ORDERED: CRAN250C PO (06:07)
[2022-02-22] MEDS ORDERED: ISOS30TA19 PO (06:07)
[2022-02-22] MEDS ORDERED: CYAN-9 PO (06:07)
[2022-02-22] MEDS ORDERED: ONDANSETRON ODT 4 MG TAB.RAPDIS. PO PRN (06:15)
[2022-02-22 07:00] VITALS: BP 140/53
--- NOTE | 2022-02-22 07:18 | NUR ---
Around 0430 pt. arrived to the unit via EMS from [facility]. He is pleasantly confused and will make some needs known.
[2022-02-22 08:00] LABS: BASO # 0.1 x10^3/uL (0.0-0.2); BASO % 1 % (0-3); EOS # 0.1 x10^3/uL (0.0-0.7); EOS % 1 % (0-3); HEMATOCRIT 23.4 % (39.0-53.0); HEMOGLOBIN 7.9 g/dL (13.0-17.5); LYMPH # 0.9 x10^3/uL (1.0-4.8); LYMPH % 10 % (24-48); MEAN CORPUSCULAR HEMOGLOBIN 37 pg (25-35); MEAN CORPUSCULAR HGB CONC 34 g/dL (31-37); MEAN CORPUSCULAR VOLUME 109 fL (79-100); MONO # 0.4 x10^3/uL (0.0-1.1); MONO % 4 % (0-9); NEUT # 8.3 x10^3/uL (1.8-7.7); NEUT % 84 % (31-73); PLATELET COUNT 62 x10^3/uL (140-400); RED BLOOD COUNT 2.14 x10^6/uL (4.30-5.70); RED CELL DISTRIBUTION WIDTH 21.5 % (11.5-14.5); WHITE BLOOD COUNT 9.8 x10^3/uL (4.0-11.0)
[2022-02-22] MEDS: PANTOPRAZOLE 40 MG TABLET.DR. PO SCH (08:01)
[2022-02-22 08:07] LABS: CALCIUM 8.2 mg/dL (8.5-10.1); GFR 70.7; POTASSIUM 4.9 mmol/L (3.5-5.1)
--- NOTE | 2022-02-22 08:24 | PDOC1 ---
History and Physical Date of Service: DOS: DATE: 02/22/22 TIME: 08:23 Chief Complaint: Chief Complain: Confusion and urinary retention History of Present Illness: HPI: 86-year-old male with past medical history of Alzheimer's dementia, recent laminectomy by neurosurgery on 02/15/2022, sick sinus syndrome, pacemaker placement in February 02, 2021 who was transferred from [facility] because of urinary retention and confusion. Patient had an L4-L5 laminectomy done by Dr. Cooper about a week ago. provides most of the history and states that she had noticed some drainage from the wound that was slightly blood-tinged. She has also been noticing that the is more confused than usual. No aggression or self-harm noted. Patient also had some urinary retention and constipation since the surgery. Patient was transferred over from [facility] to this facility mainly for neurosurgery evaluation. Upon my encounter this morning patient was sitting on the toilet and was having multiple bowel movements. He also came with a Reed mainly due to urinary retention and upon review of the records he did have a bladder scan done at [facility] which showed 385 cc. Patient's review of systems limited due to dementia. Past Medical/Surgical History: PMH/PSH: Past medical history includes lumbar stenosis, Dupuytren contracture of bilateral hands, SSS and first-degree AV block with pacemaker placement on 02/02/2021, [employer], CAD with stents in 2002 Past surgical history: L4-L5 laminectomy 02/15/2022 Allergies: Allergies: Coded Allergies: No Known Drug Allergies (Unverified , 02/04/22) Family History: Family History: Reviewed with no relative findings in the chart Social History: Social History: Limited due to altered mental status Current Medications: Current Medications Current Medications Aspirin (Aspirin Chewable) 81 mg DAILY PO ; Start 02/22/22 at 09:00 Docusate Sodium (Colace) 100 mg BID PO ; Start 02/22/22 at 09:00 Donepezil HCl (Aricept) 10 mg HS PO ; Start 02/22/22 at 21:00 Memantine (Namenda) 10 mg BID PO ; Start 02/22/22 at 09:00 Pantoprazole Sodium (Protonix) 40 mg DAILYAC PO Last administered on 02/22/22at 08:01; Start 02/22/22 at 07:30 Non-Formulary Medication (Cranberry Extract (Cranberry)) 250 mg PRN DAILY PRN PO SEE COMMENTS; Start 02/22/22 at 06:00; Status UNV Cyanocobalamin (Vitamin B-12) 1,000 mcg DAILY PO ; Start 02/22/22 at 09:00 Isosorbide Dinitrate (Isordil) 10 mg DAILY PO ; Start 02/22/22 at 09:00 Ondansetron HCl (Zofran Odt) 4 mg Q6HRS PRN PO NAUSEA/VOMITING; Start 02/22/22 at 06:15 Active Scripts Active Colace (Docusate Sodium) 100 Mg Capsule 100 Mg PO BID Reported Cranberry (Cranberry Extract) 250 Mg Capsule 250 Mg PO PRN DAILY PRN Vitamin B-12 (Cyanocobalamin (Vitamin B-12)) 1,000 Mcg Capsule 1 Cap PO PRN DAILY PRN 30 Days Isosorbide Dinitrate 30 Mg Tablet 10 Mg PO DAILY Aspirin 81 Mg Tab.chew 1 Tab PO DAILY Protonix (Pantoprazole Sodium) 40 Mg Tablet.dr 40 Mg PO DAILYAC Donepezil Hcl 10 Mg Tablet 10 Mg PO HS Namenda (Memantine Hcl) 10 Mg Tablet 1 Tab PO BID Zofran (Ondansetron Hcl) 4 Mg Tablet 1 Tab PO Q6HRS PRN ROS: Review of Systems Review of System Limited due to dementia Physical Exam: Vital Signs: Vital Signs Date Time Temp Pulse Resp B/P (MAP) Pulse Ox O2 Delivery O2 Flow Rate FiO2 02/22/22 07:00 98.5 57 18 140/53 (82) 96 Room Air 98.5 Physcial Exam: General: Well developed, well nourished, no acute distress, well appearing HEENT: Pupils equally round and reactive to light, EOMI, no discharge, normal conjunctiva Neck: Supple, no nuchal rigidity, no JVD, trachea midline, no tenderness Cardiac: RRR, no murmurs, no gallops, no rubs Chest/Lungs: CTAB, no wheeze, no rhonchi, no crackles Abdomen: soft, non-distended, no guarding, no peritoneal signs, non-tender Back: No point tenderness or step-offs. Incision is well-healed without any surrounding erythema. Extremities: no edema, pulses intact, non-tender,capillary refill <3 sec bilateral upper and lower extremities, Neuro: Alert and oriented x 4, no focal deficits, normal speech Labs: Labs: Laboratory Tests Test 02/22/22 07:41 White Blood Count 9.8 x10^3/uL (4.0-11.0) Red Blood Count 2.14 x10^6/uL (4.30-5.70) Hemoglobin 7.9 g/dL (13.0-17.5) Hematocrit 23.4 % (39.0-53.0) Mean Corpuscular Volume 109 fL (79-100) Mean Corpuscular Hemoglobin 37 pg (25-35) Mean Corpuscular Hemoglobin Concent 34 g/dL (31-37) Red Cell Distribution Width 21.5 % (11.5-14.5) Platelet Count 62 x10^3/uL (140-400) Neutrophils (%) (Auto) 84 % (31-73) Lymphocytes (%) (Auto) 10 % (24-48) Monocytes (%) (Auto) 4 % (0-9) Eosinophils (%) (Auto) 1 % (0-3) Basophils (%) (Auto) 1 % (0-3) Neutrophils # (Auto) 8.3 x10^3/uL (1.8-7.7) Lymphocytes # (Auto) 0.9 x10^3/uL (1.0-4.8) Monocytes # (Auto) 0.4 x10^3/uL (0.0-1.1) Eosinophils # (Auto) 0.1 x10^3/uL (0.0-0.7) Basophils # (Auto) 0.1 x10^3/uL (0.0-0.2) Sodium Level 141 mmol/L (136-145) Potassium Level 4.9 mmol/L (3.5-5.1) Chloride Level 106 mmol/L (98-107) Carbon Dioxide Level 25 mmol/L (21-32) Anion Gap 10 (6-14) Blood Urea Nitrogen 13 mg/dL (8-26) Creatinine 1.0 mg/dL (0.7-1.3) Estimated GFR (Cockcroft-Gault) 70.7 Glucose Level 120 mg/dL (70-99) Calcium Level 8.2 mg/dL (8.5-10.1) Laboratory Tests Test 02/22/22 07:41 White Blood Count 9.8 x10^3/uL (4.0-11.0) Red Blood Count 2.14 x10^6/uL (4.30-5.70) Hemoglobin 7.9 g/dL (13.0-17.5) Hematocrit 23.4 % (39.0-53.0) Mean Corpuscular Volume 109 fL (79-100) Mean Corpuscular Hemoglobin 37 pg (25-35) Mean Corpuscular Hemoglobin Concent 34 g/dL (31-37) Red Cell Distribution Width 21.5 % (11.5-14.5) Platelet Count 62 x10^3/uL (140-400) Neutrophils (%) (Auto) 84 % (31-73) Lymphocytes (%) (Auto) 10 % (24-48) Monocytes (%) (Auto) 4 % (0-9) Eosinophils (%) (Auto) 1 % (0-3) Basophils (%) (Auto) 1 % (0-3) Neutrophils # (Auto) 8.3 x10^3/uL (1.8-7.7) Lymphocytes # (Auto) 0.9 x10^3/uL (1.0-4.8) Monocytes # (Auto) 0.4 x10^3/uL (0.0-1.1) Eosinophils # (Auto) 0.1 x10^3/uL (0.0-0.7) Basophils # (Auto) 0.1 x10^3/uL (0.0-0.2) Sodium Level 141 mmol/L (136-145) Potassium Level 4.9 mmol/L (3.5-5.1) Chloride Level 106 mmol/L (98-107) Carbon Dioxide Level 25 mmol/L (21-32) Anion Gap 10 (6-14) Blood Urea Nitrogen 13 mg/dL (8-26) Creatinine 1.0 mg/dL (0.7-1.3) Estimated GFR (Cockcroft-Gault) 70.7 Glucose Level 120 mg/dL (70-99) Calcium Level 8.2 mg/dL (8.5-10.1) Images: Images Outside impressions read from the CT lumbar spine showing foci of gas within the subcutaneous soft tissues of the lower back overlying the posterior segments of L2 and tracking along the posterior elements of L3. Findings may be postsurgical however infectious process cannot be excluded. There is also a broad-based bulge extending from L2-L3 through L4-5 as well as ligamentous hypertrophy causing hyper moderate to severe canal stenosis Assessment/Plan Assessment/Plan Acute metaboli/infectious encephalopathy - No obvious centrally acting medications currently. No obvious signs of infection on physical exam. No fevers or nuchal rigidity. No history or signs of trauma Concern for postsurgical laminectomy surgical site infection Failure to thrive Macrocytic anemia Thrombocytopenia History of Alzheimer's dementia History of sick sinus syndrome status post pacemaker placement History of CAD with stents Admit to hospitalist service for further management Pending B12 and TSH levels to rule out causes of encephalopathy If patient's altered mental status worsens then will consider CT of the head No obvious centrally acting medications currently. No obvious signs of infection on physical exam. No fevers or nuchal rigidity. CT head is negative for acute etiology. No history or signs of trauma Pending TSH, B12, levels Pending urine toxic drug screen Consider dementia prevention protocol Provide adequate lighting (open curtains during the day, turn the lights off at night) Provide frequent personal contact with family, friends, and staff or TV Encourage early and frequent mobilization Rehab screening ordered IV Geodon as needed for agitation, consider sitter as needed if non-redirectable agitation Avoid physical restraints, catheters or tubes, and benzodiazepines Nutrition consult if there is malnutrition or concern for vitamin deficiencies Continue IV fluids SCD and ambulation for DVT prophylaxis Protonix GI prophylaxis Cardiac diet Full code Discussed with RN and SW Dispo inpatient management as above Justifications for Admission Other Justification PETE ALFREDO MD February 22, 2022 08:24
[2022-02-22] MEDS: DOCUSATE SODIUM 100 MG CAPSULE. PO SCH ×2 (08:45→20:11)
[2022-02-22] MEDS: CYANOCOBALAMIN (VITAMIN B-12) 1,000 MCG TABLET. PO SCH (08:45)
[2022-02-22] MEDS: ASPIRIN CHEWABLE 81 MG TABLET. PO SCH (08:45)
[2022-02-22] MEDS: MEMANTINE 10 MG TABLET. PO SCH ×2 (08:45→20:21)
[2022-02-22] MEDS: ISOSORBIDE DINITRATE 10 MG TABLET. PO SCH (08:48)
[2022-02-22 10:57] LABS: MICROCYTOSIS MOD; PLT ESTIMATE DECREASED (ADEQUATE)
[2022-02-22 11:00] VITALS: BP 108/63
--- NOTE | 2022-02-22 11:55 | PDOC ---
Provider Note Date of Service: DATE: 02/22/22 TIME: 11:53 Provider Note Patient seen and examined s/p Bilateral hemilaminotomies with decompression of dura and nerve root L4-5, microdiscectomy L4-5 left on 02/15/22 went to ED at [facility] last night with constipation and confusion currently confused, Up in chair, admits some back pain incision has healed well ROSI Requested lumbar CT be clouded for review D/W RN Justifications for Admission Other Justification CELSO MACHUCA COMPUTATOR February 22, 2022 11:55
[2022-02-22] MEDS ORDERED: oxyCODONE/APAP 5/325 1 TAB TABLET PO PRN (12:00)
[2022-02-22] MEDS ORDERED: DEXTROSE 50% 25 GM / 50ML DISP.SYRIN. IV PRN (12:00)
[2022-02-22] MEDS ORDERED: diphenhydrAMINE HCL 25 MG CAPSULE PO PRN ×2 (12:00)
[2022-02-22] MEDS ORDERED: DOCUSATE SODIUM 100 MG CAPSULE. PO PRN (12:00)
[2022-02-22] MEDS ORDERED: ENOXAPARIN 40 MG/0.4 ML SYRINGE. SQ SCH (12:00)
[2022-02-22] MEDS ORDERED: ONDANSETRON PF 4 MG/2 ML VIAL. IVP PRN (12:00)
[2022-02-22] MEDS ORDERED: diphenhydrAMINE 50 MG/ML VIAL IVP PRN (12:00)
[2022-02-22] MEDS ORDERED: PROCHLORPERAZINE 10 MG/2 ML VIAL. IV PRN (12:00)
[2022-02-22] MEDS: IV NORMAL SALINE 1000ML BAG 1,000 ML IV SCH (12:00)
[2022-02-22] MEDS ORDERED: SENNOSIDES 8.6 MG TABLET PO PRN (12:00)
[2022-02-22] MEDS ORDERED: ACETAMINOPHEN 325 MG TABLET. PO PRN (12:00)
[2022-02-22] MEDS ORDERED: ZOLPIDEM 5 MG TABLET. PO PRN (12:00)
[2022-02-22] MEDS: CEFEPIME HCL IV Push 1 GM VIAL. IVP SCH ×2 (13:00→20:21)
[2022-02-22] MEDS ORDERED: VANCOMYCIN 1.5 GM in IV NORMAL SALINE 500ML BAG 500 ML IV ONE (13:00)
--- NOTE | 2022-02-22 14:21 | NUR ---
SS following for discharge planning. SS reviewed pt chart and discussed with pt RN. Pt is from home with spouse and is currently on room air. Pt confused. Pt on IV Cefepime. PT/OT recommended halfway unit. SS contacted pt's spouse to discuss discharge planning and halfway unit. Pt's spouse agreeable to halfway unit when ready and would like referral to [facility], ; fax [phone]. SS will continue to follow for discharge planning.
[2022-02-22 15:00] VITALS: BP 126/75
[2022-02-22] MEDS: VANCOMYCIN PER PHARMACY MC PRN ×2 (15:29→15:33)
--- NOTE | 2022-02-22 15:33 | NUR ---
Pharmacy Vancomycin Dosing Note S:Consulted to monitor and dose vancomycin started 02/22/22. O:JESUS HOBBS is a 86 year old M with Empiric . Height: 5 feet, 9 inches Weight: 86.3 kg [place] Body Weight: 70.70 Adjusted Body Weight: 76.94 Dosing Weight: Actual Other Antibiotics: cefepime LABS: Last BUN: 13 Last Creatinine: 1.0 Creatinine Clearance: 56 mL/min Last WBC: 9.8 Last Procalcitonin: Tmax (past 24 hours): Microbiology: I/O: Drug Levels: Last level: on at Last dose given at Vancomycin Dosing: Loading Dose: 1500 mg x1 Dosing Weight: Actual Target Trough: 10-20 A: Based on: HT, WT AND RENAL FUNCTION P: 1. Begin Vancomycin 1500 mg IV q24h 2. Follow up Trough level on 02/24/22 at 1230 3. Pharmacy will continue to monitor, follow and adjust therapy as needed. DILSHAD PACE, [facility], 02/22/22 [id number]
[2022-02-22 19:00] VITALS: BP 132/49
[2022-02-22] MEDS: LACTOBACILLUS RHAMNOSUS GG 1 CAPSULE. PO SCH (20:21)
[2022-02-22] MEDS ORDERED: DONEPEZIL HCL 10 MG TABLET. PO SCH (21:00)
[2022-02-22] MEDS ORDERED: ZIPRASIDONE IM 20 MG VIAL. IM ONE (23:00)
[2022-02-22 23:59] VITALS: BP 135/44
[2022-02-23] MEDS: IV NORMAL SALINE 1000ML BAG 1,000 ML IV SCH ×2 (01:15→08:00)
[2022-02-23] MEDS: PANTOPRAZOLE 40 MG TABLET.DR. PO SCH (07:30)
[2022-02-23] MEDS: CYANOCOBALAMIN (VITAMIN B-12) 1,000 MCG TABLET. PO SCH (08:57)
[2022-02-23] MEDS: LACTOBACILLUS RHAMNOSUS GG 1 CAPSULE. PO SCH ×2 (08:57→21:00)
[2022-02-23] MEDS: ASPIRIN CHEWABLE 81 MG TABLET. PO SCH (08:58)
[2022-02-23] MEDS: DOCUSATE SODIUM 100 MG CAPSULE. PO SCH ×2 (08:58→21:00)
[2022-02-23] MEDS: ISOSORBIDE DINITRATE 10 MG TABLET. PO SCH (08:58)
[2022-02-23] MEDS: CEFEPIME HCL IV Push 1 GM VIAL. IVP SCH (09:00)
[2022-02-23 09:12] LABS: BASO # 0.2 x10^3/uL (0.0-0.2); BASO % 2 % (0-3); EOS # 0.3 x10^3/uL (0.0-0.7); EOS % 3 % (0-3); HEMATOCRIT 26.3 % (39.0-53.0); HEMOGLOBIN 8.6 g/dL (13.0-17.5); LYMPH # 1.8 x10^3/uL (1.0-4.8); LYMPH % 18 % (24-48); MEAN CORPUSCULAR HEMOGLOBIN 36 pg (25-35); MEAN CORPUSCULAR HGB CONC 33 g/dL (31-37); MEAN CORPUSCULAR VOLUME 108 fL (79-100); MONO # 0.8 x10^3/uL (0.0-1.1); MONO % 8 % (0-9); NEUT # 7.1 x10^3/uL (1.8-7.7); NEUT % 69 % (31-73); RED BLOOD COUNT 2.43 x10^6/uL (4.30-5.70); RED CELL DISTRIBUTION WIDTH 21.8 % (11.5-14.5); WHITE BLOOD COUNT 10.2 x10^3/uL (4.0-11.0)
[2022-02-23 09:23] LABS: PLATELET COUNT 425 x10^3/uL (140-400)
[2022-02-23 09:45] LABS: CALCIUM 8.5 mg/dL (8.5-10.1); CREATININE 1.1 mg/dL (0.7-1.3); GFR 63.3; MAGNESIUM 2.4 mg/dL (1.8-2.4); POTASSIUM 3.9 mmol/L (3.5-5.1)
[2022-02-23 11:00] VITALS: BP 108/28
[2022-02-23] MEDS ORDERED: ZIPRASIDONE IM 20 MG VIAL. IM ONE (11:15)
--- NOTE | 2022-02-23 11:15 | NUR ---
Patient agitated, swinging arms and trying to get out of bed. Code viola called, 0.25mg of Ativan given also Geodon 10 mg IM given
--- NOTE | 2022-02-23 11:39 | NUR ---
Patient in bed, relaxed, bed alarm on.
[2022-02-23] MEDS ORDERED: VANCOMYCIN 1.5 GM in IV NORMAL SALINE 500ML BAG 500 ML IV SCH (13:00)
--- NOTE | 2022-02-23 13:02 | PDOC ---
PROGRESS NOTES Date of Service DATE: 02/23/22 TIME: 12:58 Subjective Subjective Patient seen at 1200 resting calmly in bed nurse reports agitaion lumbar incision healed reviewed lumbar CT from [facility] , post op changes, satisfactory will follow D/W RN Objective Objective Vital Signs Date Time Temp Pulse Resp B/P (MAP) Pulse Ox O2 Delivery O2 Flow Rate FiO2 02/23/22 11:00 98.0 70 20 108/28 (54) 92 98.0 02/23/22 08:00 Room Air Intake and Output 02/23/22 07:00 Intake Total 200 ml Output Total 500 ml Balance -300 ml Intake Oral 200 ml Output Urine Total 500 ml # Voids 3 # Bowel Movements 9 Comment Review of Relevant I have reviewed the following items sunil (where applicable) has been applied. Labs Laboratory Tests Test 02/22/22 07:41 02/23/22 08:40 White Blood Count 9.8 x10^3/uL (4.0-11.0) 10.2 x10^3/uL (4.0-11.0) Red Blood Count 2.14 x10^6/uL (4.30-5.70) 2.43 x10^6/uL (4.30-5.70) Hemoglobin 7.9 g/dL (13.0-17.5) 8.6 g/dL (13.0-17.5) Hematocrit 23.4 % (39.0-53.0) 26.3 % (39.0-53.0) Mean Corpuscular Volume 109 fL (79-100) 108 fL (79-100) Mean Corpuscular Hemoglobin 37 pg (25-35) 36 pg (25-35) Mean Corpuscular Hemoglobin Concent 34 g/dL (31-37) 33 g/dL (31-37) Red Cell Distribution Width 21.5 % (11.5-14.5) 21.8 % (11.5-14.5) Platelet Count 62 x10^3/uL (140-400) 425 x10^3/uL (140-400) Neutrophils (%) (Auto) 84 % (31-73) 69 % (31-73) Lymphocytes (%) (Auto) 10 % (24-48) 18 % (24-48) Monocytes (%) (Auto) 4 % (0-9) 8 % (0-9) Eosinophils (%) (Auto) 1 % (0-3) 3 % (0-3) Basophils (%) (Auto) 1 % (0-3) 2 % (0-3) Neutrophils # (Auto) 8.3 x10^3/uL (1.8-7.7) 7.1 x10^3/uL (1.8-7.7) Lymphocytes # (Auto) 0.9 x10^3/uL (1.0-4.8) 1.8 x10^3/uL (1.0-4.8) Monocytes # (Auto) 0.4 x10^3/uL (0.0-1.1) 0.8 x10^3/uL (0.0-1.1) Eosinophils # (Auto) 0.1 x10^3/uL (0.0-0.7) 0.3 x10^3/uL (0.0-0.7) Basophils # (Auto) 0.1 x10^3/uL (0.0-0.2) 0.2 x10^3/uL (0.0-0.2) Platelet Estimate Decreased (ADEQUATE) Large Platelets Occ Microcytosis Mod Macrocytosis Present Sodium Level 141 mmol/L (136-145) 145 mmol/L (136-145) Potassium Level 4.9 mmol/L (3.5-5.1) 3.9 mmol/L (3.5-5.1) Chloride Level 106 mmol/L (98-107) 110 mmol/L (98-107) Carbon Dioxide Level 25 mmol/L (21-32) 28 mmol/L (21-32) Anion Gap 10 (6-14) 7 (6-14) Blood Urea Nitrogen 13 mg/dL (8-26) 15 mg/dL (8-26) Creatinine 1.0 mg/dL (0.7-1.3) 1.1 mg/dL (0.7-1.3) Estimated GFR (Cockcroft-Gault) 70.7 63.3 Glucose Level 120 mg/dL (70-99) 98 mg/dL (70-99) Calcium Level 8.2 mg/dL (8.5-10.1) 8.5 mg/dL (8.5-10.1) Vitamin B12 Level 840 pg/mL (247-911) Thyroid Stimulating Hormone (TSH) 0.971 uIU/mL (0.358-3.74) Phosphorus Level 3.0 mg/dL (2.6-4.7) Magnesium Level 2.4 mg/dL (1.8-2.4) Laboratory Tests Test 02/23/22 08:40 White Blood Count 10.2 x10^3/uL (4.0-11.0) Red Blood Count 2.43 x10^6/uL (4.30-5.70) Hemoglobin 8.6 g/dL (13.0-17.5) Hematocrit 26.3 % (39.0-53.0) Mean Corpuscular Volume 108 fL (79-100) Mean Corpuscular Hemoglobin 36 pg (25-35) Mean Corpuscular Hemoglobin Concent 33 g/dL (31-37) Red Cell Distribution Width 21.8 % (11.5-14.5) Platelet Count 425 x10^3/uL (140-400) Neutrophils (%) (Auto) 69 % (31-73) Lymphocytes (%) (Auto) 18 % (24-48) Monocytes (%) (Auto) 8 % (0-9) Eosinophils (%) (Auto) 3 % (0-3) Basophils (%) (Auto) 2 % (0-3) Neutrophils # (Auto) 7.1 x10^3/uL (1.8-7.7) Lymphocytes # (Auto) 1.8 x10^3/uL (1.0-4.8) Monocytes # (Auto) 0.8 x10^3/uL (0.0-1.1) Eosinophils # (Auto) 0.3 x10^3/uL (0.0-0.7) Basophils # (Auto) 0.2 x10^3/uL (0.0-0.2) Sodium Level 145 mmol/L (136-145) Potassium Level 3.9 mmol/L (3.5-5.1) Chloride Level 110 mmol/L (98-107) Carbon Dioxide Level 28 mmol/L (21-32) Anion Gap 7 (6-14) Blood Urea Nitrogen 15 mg/dL (8-26) Creatinine 1.1 mg/dL (0.7-1.3) Estimated GFR (Cockcroft-Gault) 63.3 Glucose Level 98 mg/dL (70-99) Calcium Level 8.5 mg/dL (8.5-10.1) Phosphorus Level 3.0 mg/dL (2.6-4.7) Magnesium Level 2.4 mg/dL (1.8-2.4) Medications Current Medications Aspirin (Aspirin Chewable) 81 mg DAILY PO Last administered on 02/23/22at 08:58; Start 02/22/22 at 09:00 Docusate Sodium (Colace) 100 mg BID PO Last administered on 02/23/22at 08:58; Start 02/22/22 at 09:00 Donepezil HCl (Aricept) 10 mg HS PO Last administered on 02/22/22at 20:21; Start 02/22/22 at 21:00; Stop 02/23/22 at 07:55; Status DC Memantine (Namenda) 10 mg BID PO Last administered on 02/22/22at 20:21; Start 02/22/22 at 09:00; Stop 02/23/22 at 07:55; Status DC Pantoprazole Sodium (Protonix) 40 mg DAILYAC PO Last administered on 02/22/22at 08:01; Start 02/22/22 at 07:30 Non-Formulary Medication (Cranberry Extract (Cranberry)) 250 mg PRN DAILY PRN PO SEE COMMENTS; Start 02/22/22 at 06:00; Status UNV Cyanocobalamin (Vitamin B-12) 1,000 mcg DAILY PO Last administered on 02/23/22at 08:57; Start 02/22/22 at 09:00 Isosorbide Dinitrate (Isordil) 10 mg DAILY PO Last administered on 02/23/22at 08:58; Start 02/22/22 at 09:00 Ondansetron HCl (Zofran Odt) 4 mg Q6HRS PRN PO NAUSEA/VOMITING; Start 02/22/22 at 06:15 Sennosides (Senna) 17.2 mg PRN BID PRN PO CONSTIPATION; Start 02/22/22 at 12:00 Docusate Sodium (Colace) 100 mg PRN DAILY PRN PO HARD STOOLS; Start 02/22/22 at 12:00 Ondansetron HCl (Zofran) 4 mg PRN Q6HRS PRN IVP NAUSEA/VOMITING, 1st CHOICE; Start 02/22/22 at 12:00 Dextrose (Dextrose 50%-Water Syringe) 12.5 gm PRN Q15MIN PRN IV SEE COMMENTS; Start 02/22/22 at 12:00 Sodium Chloride 1,000 ml @ 100 mls/hr Q10H IV Last administered on 02/23/22at 08:00; Start 02/22/22 at 12:00 Acetaminophen (Tylenol) 650 mg PRN Q4HRS PRN PO TEMP OVER 100.4F OR MILD PAIN; Start 02/22/22 at 12:00 Lorazepam (Ativan) 0.5 mg PRN Q6HRS PRN PO ANXIETY / AGITATION; Start 02/22/22 at 12:00 Lorazepam (Ativan Inj) 0.25 mg PRN Q4HRS PRN IV ANXIETY / AGITATION Last administered on 02/23/22at 11:17; Start 02/22/22 at 12:00 Enoxaparin Sodium (Lovenox 40mg Syringe) 40 mg Q24H SQ ; Start 02/22/22 at 12:00; Status UNV Oxycodone/ Acetaminophen (Percocet 5/325) 1 tab PRN Q4HRS PRN PO MILD PAIN, 1ST CHOICE; Start 02/22/22 at 12:00 Prochlorperazine Edisylate (Compazine) 10 mg PRN Q6HRS PRN IV NAUSEA/VOMITING, 2nd CHOICE; Start 02/22/22 at 12:00 Diphenhydramine HCl (Benadryl) 25 mg PRN Q6HRS PRN IVP ITCHING Last administered on 02/22/22at 22:26; Start 02/22/22 at 12:00 Diphenhydramine HCl (Benadryl) 25 mg PRN Q6HRS PRN PO ITCHING; Start 02/22/22 at 12:00 Diphenhydramine HCl (Benadryl) 25 mg PRN QHS PRN PO INSOMNIA, 1st CHOICE; Start 02/22/22 at 12:00 Zolpidem Tartrate (Ambien) 2.5 mg PRN QHS PRN PO INSOMNIA, 2nd CHOICE; Start 02/22/22 at 12:00 Vancomycin HCl (Vanco Per Pharmacy) 1 each PRN DAILY PRN MC SEE COMMENTS Last administered on 02/22/22at 15:33; Start 02/22/22 at 12:00 Cefepime HCl (Maxipime) 1 gm Q12HR IVP Last administered on 02/23/22at 09:00; Start 02/22/22 at 13:00 Vancomycin HCl 1.5 gm/Sodium Chloride 500 ml @ 250 mls/hr 1X ONCE IV Last administered on 02/22/22at 12:57; Start 02/22/22 at 13:00; Stop 02/22/22 at 14:59; Status DC Vancomycin HCl (Vancomycin Trough Level) 1 each 1X ONCE MC ; Start 02/24/22 at 12:30; Stop 02/24/22 at 12:31 Vancomycin HCl 1.5 gm/Sodium Chloride 500 ml @ 250 mls/hr Q24H IV Last administered on 02/23/22at 12:22; Start 02/23/22 at 13:00 Lactobacillus Rhamnosus (Culturelle) 1 cap BID PO Last administered on 02/23/22at 08:57; Start 02/22/22 at 21:00 Ziprasidone (Geodon Im) 10 mg 1X ONCE IM Last administered on 02/22/22at 23:03; Start 02/22/22 at 23:00; Stop 02/22/22 at 23:01; Status DC Ziprasidone (Geodon Im) 10 mg 1X ONCE IM Last administered on 02/23/22at 11:10; Start 02/23/22 at 11:15; Stop 02/23/22 at 11:16; Status DC Ziprasidone (Geodon Im) 10 mg PRN Q6HRS PRN IM AGITATION; Start 02/23/22 at 11:15 Active Scripts Active Colace (Docusate Sodium) 100 Mg Capsule 100 Mg PO BID Reported Cranberry (Cranberry Extract) 250 Mg Capsule 250 Mg PO PRN DAILY PRN Vitamin B-12 (Cyanocobalamin (Vitamin B-12)) 1,000 Mcg Capsule 1 Cap PO PRN DAILY PRN 30 Days Isosorbide Dinitrate 30 Mg Tablet 10 Mg PO DAILY Aspirin 81 Mg Tab.chew 1 Tab PO DAILY Protonix (Pantoprazole Sodium) 40 Mg Tablet.dr 40 Mg PO DAILYAC Donepezil Hcl 10 Mg Tablet 10 Mg PO HS Namenda (Memantine Hcl) 10 Mg Tablet 1 Tab PO BID Zofran (Ondansetron Hcl) 4 Mg Tablet 1 Tab PO Q6HRS PRN Vitals/I & O Vital Sign - Last 24 Hours 02/22/22 02/22/22 02/22/22 02/22/22 15:00 19:00 20:00 23:59 Temp 98.0 99.4 98.0 98.0 99.4 98.0 Pulse 80 64 68 Resp 18 18 20 B/P (MAP) 126/75 (92) 132/49 (76) 135/44 (74) Pulse Ox 97 95 92 O2 Delivery Room Air Room Air Room Air Room Air 02/23/22 02/23/22 02/23/22 02/23/22 03:00 08:00 08:58 11:00 Temp 98.0 98.0 Pulse 68 70 Resp 20 20 B/P (MAP) 135/44 108/28 (54) Pulse Ox 92 O2 Delivery Room Air Room Air Intake and Output 02/22/22 02/22/22 02/23/22 15:00 23:00 07:00 Intake Total 200 ml Output Total 500 ml Balance -500 ml 200 ml Justifications for Admission Other Justification Confusion and urinary retention YOUSUF BROOKS MD February 23, 2022 13:02
--- NOTE | 2022-02-23 13:24 | PDOC ---
[employer] PROGRESS NOTE Date of Service DOS: DATE: 02/23/22 TIME: 13:20 Chief Complaint Chief Complaint Assessment/Plan Acute metaboli/infectious encephalopathy - No obvious centrally acting medications currently. No obvious signs of infection on physical exam. No fevers or nuchal rigidity. No history or signs of trauma Concern for postsurgical laminectomy surgical site infectionNS surgery reviewed images and reassured that there is no infection and just postop postsurgical changes. Will DC antibiotics Failure to thrive Macrocytic anemia Thrombocytopenia History of Alzheimer's dementia History of sick sinus syndrome status post pacemaker placement History of CAD with stents Pending repeat UA Pending B12 and TSH levels to rule out causes of encephalopathy If patient's altered mental status worsens then will consider CT of the head Pending urine toxic drug screen Consider dementia prevention protocol Provide adequate lighting (open curtains during the day, turn the lights off at night) Provide frequent personal contact with family, friends, and staff or TV Encourage early and frequent mobilization Rehab screening ordered IV Geodon as needed for agitation, consider sitter as needed if non-redirectable agitation Avoid physical restraints, catheters or tubes, and benzodiazepines Nutrition consult if there is malnutrition or concern for vitamin deficiencies Continue IV fluids SCD and ambulation for DVT prophylaxis Protonix GI prophylaxis Cardiac diet Full code Discussed with RN and SW Dispo inpatient management as above History of Present Illness History of Present Illness 86-year-old male with past medical history of Alzheimer's dementia, recent l aminectomy by neurosurgery on 02/15/2022, sick sinus syndrome, pacemaker placement in February 02, 2021 who was transferred from [facility] because of urinary retention and confusion. Patient had an L4-L5 laminectomy done by Dr. Cooper about a week ago. provides most of the history and states that she had noticed some drainage from the wound that was slightly blood-tinged. She has also been noticing that the is more confused than usual. No aggression or self-harm noted. Patient also had some urinary retention and constipation since the surgery. Patient was transferred over from [facility] to this facility mainly for neurosurgery evaluation. Upon my encounter this morning patient was sitting on the toilet and was having multiple bowel movements. He also came with a Reed mainly due to urinary retention and upon review of the records he did have a bladder scan done at [facility] which showed 385 cc. Patient's review of systems limited due to dementia. 02/23/2022 No acute events overnight. Patient seen examined bedside. AF and VSS. Agitated for no episode requiring multiple nurses to keep patient from climbing out of bed. One-time Geodon dose given. Patient calm afterwards. Incision site is clear dry and intact. Patient's chart, labs, images were reviewed and discussed with RN Vitals/I&O Vitals/I&O: Vital Signs Date Time Temp Pulse Resp B/P (MAP) Pulse Ox O2 Delivery O2 Flow Rate FiO2 02/23/22 11:00 98.0 70 20 108/28 (54) 92 98.0 02/23/22 08:00 Room Air I & O 02/22/22 02/22/22 02/23/22 15:00 23:00 07:00 Intake Total 200 ml Output Total 500 ml Balance -500 ml 200 ml Physical Exam General: Alert, Oriented X3, Cooperative Heart: Regular rate Lungs: Clear Abdomen: Normal bowel sounds Extremities: No clubbing Skin: No rashes Labs Labs: Laboratory Tests Test 02/23/22 08:40 White Blood Count 10.2 x10^3/uL (4.0-11.0) Red Blood Count 2.43 x10^6/uL (4.30-5.70) Hemoglobin 8.6 g/dL (13.0-17.5) Hematocrit 26.3 % (39.0-53.0) Mean Corpuscular Volume 108 fL (79-100) Mean Corpuscular Hemoglobin 36 pg (25-35) Mean Corpuscular Hemoglobin Concent 33 g/dL (31-37) Red Cell Distribution Width 21.8 % (11.5-14.5) Platelet Count 425 x10^3/uL (140-400) Neutrophils (%) (Auto) 69 % (31-73) Lymphocytes (%) (Auto) 18 % (24-48) Monocytes (%) (Auto) 8 % (0-9) Eosinophils (%) (Auto) 3 % (0-3) Basophils (%) (Auto) 2 % (0-3) Neutrophils # (Auto) 7.1 x10^3/uL (1.8-7.7) Lymphocytes # (Auto) 1.8 x10^3/uL (1.0-4.8) Monocytes # (Auto) 0.8 x10^3/uL (0.0-1.1) Eosinophils # (Auto) 0.3 x10^3/uL (0.0-0.7) Basophils # (Auto) 0.2 x10^3/uL (0.0-0.2) Sodium Level 145 mmol/L (136-145) Potassium Level 3.9 mmol/L (3.5-5.1) Chloride Level 110 mmol/L (98-107) Carbon Dioxide Level 28 mmol/L (21-32) Anion Gap 7 (6-14) Blood Urea Nitrogen 15 mg/dL (8-26) Creatinine 1.1 mg/dL (0.7-1.3) Estimated GFR (Cockcroft-Gault) 63.3 Glucose Level 98 mg/dL (70-99) Calcium Level 8.5 mg/dL (8.5-10.1) Phosphorus Level 3.0 mg/dL (2.6-4.7) Magnesium Level 2.4 mg/dL (1.8-2.4) Comment Review of Relevant I have reviewed the following items sunil (where applicable) has been applied. Medications: Current Medications Medications (Trade) Dose Ordered Sig/Roni Route PRN Reason Start Time Stop Time Status Last Admin Dose Admin Donepezil HCl (Aricept) 10 mg HS PO 02/22/22 21:00 02/23/22 07:55 DC 02/22/22 20:21 Vancomycin HCl 1.5 gm/Sodium Chloride 500 ml @ 250 mls/hr Q24H IV 02/23/22 13:00 02/23/22 12:22 Lactobacillus Rhamnosus (Culturelle) 1 cap BID PO 02/22/22 21:00 02/23/22 08:57 Ziprasidone (Geodon Im) 10 mg 1X ONCE IM 02/22/22 23:00 02/22/22 23:01 DC 02/22/22 23:03 Ziprasidone (Geodon Im) 10 mg 1X ONCE IM 02/23/22 11:15 02/23/22 11:16 DC 02/23/22 11:10 Justifications for Admission Other Justification Confusion and urinary retention PETE ALFREDO MD February 23, 2022 13:24
--- NOTE | 2022-02-23 14:16 | NUR ---
SS following up with discharge planning. SS reviewed pt chart and discussed with pt RN. Pt is currently on room air. PT/OT recommended detention unit. Pt's spouse requesting referral to [facility], ; fax [phone]. COVID19 PCR requested for placement. Pt agitated and confused today. Geodon given. Not ready. SS will continue to follow for discharge planning.
[2022-02-23 15:00] VITALS: BP 139/72
[2022-02-23 19:00] VITALS: BP 134/70
[2022-02-23] MEDS: ZIPRASIDONE IM 20 MG VIAL. IM PRN (21:08)
[2022-02-23 23:00] VITALS: BP 130/74
[2022-02-24] MEDS: ZIPRASIDONE IM 20 MG VIAL. IM PRN (06:49)
[2022-02-24 07:00] VITALS: BP 142/106
--- NOTE | 2022-02-24 08:26 | RAD ---
EXAM: Pelvis and bilateral hips, 3 views. HISTORY: Pain. Fall. COMPARISON: 05/19/2021. FINDINGS: A frontal view of the pelvis and frog-leg views of both hips are obtained. There is no frac ture, dislocation or subluxation. There is moderate right and mild left femoral head marginal spurrin g. There is mild degenerative spurring involving the acetabulum. There is degenerative change at the lumbosacral junction. IMPRESSION: 1. Moderate right and mild left hip osteoarthritis. 2. No acute osseous finding. Electronically signed by: Amelia Guidry MD (02/24/2022 8:23 AM) [id number]
[2022-02-24] MEDS: CYANOCOBALAMIN (VITAMIN B-12) 1,000 MCG TABLET. PO SCH (08:28)
[2022-02-24] MEDS: ASPIRIN CHEWABLE 81 MG TABLET. PO SCH (08:34)
[2022-02-24] MEDS: PANTOPRAZOLE 40 MG TABLET.DR. PO SCH (08:34)
[2022-02-24] MEDS: ISOSORBIDE DINITRATE 10 MG TABLET. PO SCH (08:34)
[2022-02-24] MEDS: DOCUSATE SODIUM 100 MG CAPSULE. PO SCH ×2 (08:37→21:23)
[2022-02-24] MEDS: LACTOBACILLUS RHAMNOSUS GG 1 CAPSULE. PO SCH ×2 (08:37→21:23)
[2022-02-24] MEDS: LORazepam 0.5 MG TABLET PO PRN (08:37)
--- NOTE | 2022-02-24 09:38 | RAD ---
EXAM: Head CT without contrast. HISTORY: Altered mental status. TECHNIQUE: Computed tomographic images of the head were obtained without contrast. *One or more of the following individualized dose reduction techniques were utilized for this examina tion: 1. Automated exposure control. 2. Adjustment of the mA and/or kV according to patient size. 3. Use of iterative reconstruction technique. COMPARISON: None. FINDINGS: There is no acute or subacute extra-axial or intraparenchymal hemorrhage. There is no mass effect or midline shift. There is no hydrocephalus. There are areas of decreased attenuation within the cerebral white matter, nonspecific and likely rel ated to chronic small vessel disease. There is cerebral volume loss. There is a right stacey bullosa. There is a tiny left maxillary sinus mucous retention cyst. There is ethmoid sinus mucosal thickening. There is evidence of lens surgery. The mastoid air cells are clear. There is no calvarial lesion. IMPRESSION: 1. No acute intracranial finding. Note is made that MRI is more sensitive for acute infarction. 2. Bilateral cerebral white matter changes, likely due to chronic small vessel disease in a patient o f this age. 3. Mild age-appropriate cerebral volume loss. Electronically signed by: Amelia Guidry MD (02/24/2022 9:36 AM) [id number]
[2022-02-24 10:00] LABS: BASO # 0.3 x10^3/uL (0.0-0.2); BASO % 3 % (0-3); EOS # 0.2 x10^3/uL (0.0-0.7); EOS % 2 % (0-3); HEMATOCRIT 26.5 % (39.0-53.0); HEMOGLOBIN 8.9 g/dL (13.0-17.5); LYMPH # 1.3 x10^3/uL (1.0-4.8); LYMPH % 14 % (24-48); MEAN CORPUSCULAR HEMOGLOBIN 36 pg (25-35); MEAN CORPUSCULAR HGB CONC 33 g/dL (31-37); MEAN CORPUSCULAR VOLUME 107 fL (79-100); MONO # 0.6 x10^3/uL (0.0-1.1); MONO % 7 % (0-9); NEUT # 7.2 x10^3/uL (1.8-7.7); NEUT % 75 % (31-73); PLATELET COUNT 448 x10^3/uL (140-400); RED BLOOD COUNT 2.49 x10^6/uL (4.30-5.70); RED CELL DISTRIBUTION WIDTH 22.4 % (11.5-14.5); WHITE BLOOD COUNT 9.6 x10^3/uL (4.0-11.0)
[2022-02-24 10:07] LABS: CALCIUM 8.3 mg/dL (8.5-10.1); GFR 70.7; MAGNESIUM 2.4 mg/dL (1.8-2.4); POTASSIUM 4.2 mmol/L (3.5-5.1)
[2022-02-24 11:00] VITALS: BP 103/48
--- NOTE | 2022-02-24 11:07 | NUR ---
SS following up with discharge planning. SS reviewed pt chart and discussed with pt RN. Pt is currently on room air. PT/OT recommended nursing home unit. Pt's spouse requesting referral to [facility], ; fax [phone]. COVID19 PCR requested for placement. Pt confused today. Per RN, Dat given this morning. Not ready. SS will continue to follow for discharge planning.
[2022-02-24 13:47] LABS: HYALINE CASTS, URINE FEW /HPF
[2022-02-24 13:48] LABS: AMORPHOUS SEDIMENT,UR PRESENT /HPF; BACTERIA,URINE 0 /HPF (0-FEW); RBC,URINE 0 /HPF (0-2)
[2022-02-24 15:00] VITALS: BP 123/51
--- NOTE | 2022-02-24 15:23 | PDOC ---
[employer] PROGRESS NOTE Date of Service DOS: DATE: 02/24/22 TIME: 15:18 Chief Complaint Chief Complaint Assessment/Plan Acute electrolyte derangementhypernatremia, hyperchloremia suggestive of dehydrationwe will start D5 half NS at 75 cc/hr today Acute metabolic encephalopathy - No obvious centrally acting medications currently. No obvious signs of infection on physical exam. No fevers or nuchal rigidity. No history or signs of trauma Concern for postsurgical laminectomy surgical site infectionNS surgery reviewed images and reassured that there is no infection and just postop postsurgical changes. Will DC antibiotics Failure to thrive Macrocytic anemia Thrombocytopenia History of Alzheimer's dementia History of sick sinus syndrome status post pacemaker placement History of CAD with stents CT head normal Pending urine toxic drug screen Consider dementia prevention protocol Provide adequate lighting (open curtains during the day, turn the lights off at night) Provide frequent personal contact with family, friends, and staff or TV Encourage early and frequent mobilization Rehab screening ordered IV Geodon as needed for agitation, consider sitter as needed if non-redirectable agitation Avoid physical restraints, catheters or tubes, and benzodiazepines Nutrition consult if there is malnutrition or concern for vitamin deficiencies Continue IV fluids SCD and ambulation for DVT prophylaxis Protonix GI prophylaxis Cardiac diet Full code Discussed with RN and SW Dispo inpatient management as above History of Present Illness History of Present Illness 86-year-old male with past medical history of Alzheimer's dementia, recent laminectomy by neurosurgery on 02/15/2022, sick sinus syndrome, pacemaker placement in February 02, 2021 who was transferred from [facility] because of urinary retention and confusion. Patient had an L4-L5 laminectomy done by Dr. Cooper about a week ago. provides most of the history and states that she had noticed some drainage from the wound that was slightly blood-tinged. She has also been noticing that the is more confused than usual. No aggression or self-harm noted. Patient also had some urinary retenti on and constipation since the surgery. Patient was transferred over from [facility] to this facility mainly for neurosurgery evaluation. Upon my encounter this morning patient was sitting on the toilet and was having multiple bowel movements. He also came with a Reed mainly due to urinary retention and upon review of the records he did have a bladder scan done at [facility] which showed 385 cc. Patient's review of systems limited due to dementia. 02/23/2022 No acute events overnight. Patient seen examined bedside. AF and VSS. Agitated for no episode requiring multiple nurses to keep patient from climbing out of bed. One-time Geodon dose given. Patient calm afterwards. Incision site is clear dry and intact. Patient's chart, labs, images were reviewed and discussed with RN 02/24/2022 No acute events overnight. Patient seen examined bedside. More calm and redi rectable. Tolerating diet. Had a difficult night with multiple agitative episodes. Requiring Geodon. PT OT recommending SNF placement. Neurosurgery has essentially signed off. Patient's chart, labs, images were reviewed and discussed with RN Vitals/I&O Vitals/I&O: Vital Signs Date Time Temp Pulse Resp B/P (MAP) Pulse Ox O2 Delivery O2 Flow Rate FiO2 02/24/22 11:00 97.8 61 16 103/48 (66) 92 97.8 02/24/22 08:00 Room Air I & O 02/23/22 02/23/22 02/24/22 15:00 23:00 07:00 Intake Total 0 ml 300 ml Balance 0 ml 300 ml Physical Exam General: Alert, Oriented X3, Cooperative Heart: Regular rate Lungs: Clear Abdomen: Normal bowel sounds Extremities: No clubbing Skin: No rashes Labs Labs: Laboratory Tests Test 02/24/22 09:44 02/24/22 12:35 White Blood Count 9.6 x10^3/uL (4.0-11.0) Red Blood Count 2.49 x10^6/uL (4.30-5.70) Hemoglobin 8.9 g/dL (13.0-17.5) Hematocrit 26.5 % (39.0-53.0) Mean Corpuscular Volume 107 fL (79-100) Mean Corpuscular Hemoglobin 36 pg (25-35) Mean Corpuscular Hemoglobin Concent 33 g/dL (31-37) Red Cell Distribution Width 22.4 % (11.5-14.5) Platelet Count 448 x10^3/uL (140-400) Neutrophils (%) (Auto) 75 % (31-73) Lymphocytes (%) (Auto) 14 % (24-48) Monocytes (%) (Auto) 7 % (0-9) Eosinophils (%) (Auto) 2 % (0-3) Basophils (%) (Auto) 3 % (0-3) Neutrophils # (Auto) 7.2 x10^3/uL (1.8-7.7) Lymphocytes # (Auto) 1.3 x10^3/uL (1.0-4.8) Monocytes # (Auto) 0.6 x10^3/uL (0.0-1.1) Eosinophils # (Auto) 0.2 x10^3/uL (0.0-0.7) Basophils # (Auto) 0.3 x10^3/uL (0.0-0.2) Sodium Level 146 mmol/L (136-145) Potassium Level 4.2 mmol/L (3.5-5.1) Chloride Level 109 mmol/L (98-107) Carbon Dioxide Level 26 mmol/L (21-32) Anion Gap 11 (6-14) Blood Urea Nitrogen 14 mg/dL (8-26) Creatinine 1.0 mg/dL (0.7-1.3) Estimated GFR (Cockcroft-Gault) 70.7 Glucose Level 116 mg/dL (70-99) Calcium Level 8.3 mg/dL (8.5-10.1) Magnesium Level 2.4 mg/dL (1.8-2.4) Urine Collection Type Unknown Urine Color (Auto) Light yellow Urine Turbidity Clear Urine pH (Auto) 7.0 (<5.0-8.0) Urine Specific [place] 1.014 (1.000-1.030) Urine Protein (Auto) Negative mg/dL (Negative) Urine Glucose (Auto)(UA) Negative mg/dL (Negative) Urine Ketones (Auto) Negative mg/dL (Negative) Urine Blood (Auto) Negative (Negative) Urine Nitrite Negative (Negative) Urine Bilirubin (Auto) Negative (Negative) Urine Urobilinogen (Auto) Normal mg/dL (Normal) Urine Leukocyte Esterase (Auto) Negative (Negative) Urine RBC 0 /HPF (0-2) Urine WBC 1-4 /HPF (0-4) Urine Amorphous Sediment Present /HPF Urine Bacteria 0 /HPF (0-FEW) Urine Hyaline Casts Few /HPF Urine Mucus Marked /LPF Comment Review of Relevant I have reviewed the following items sunil (where applicable) has been applied. Justifications for Admission Other Justification Confusion and urinary retention PETE ALFREDO MD February 24, 2022 15:23
[2022-02-24] MEDS: ENOXAPARIN 40 MG/0.4 ML SYRINGE. SQ SCH (15:55)
[2022-02-24] MEDS: IV DEXTROSE 5 %-0.45 % NACL 1,000 ML IV SCH (15:55)
[2022-02-24 19:00] VITALS: BP 127/57
[2022-02-24 23:43] VITALS: BP 129/56
[2022-02-25] MEDS: ZIPRASIDONE IM 20 MG VIAL. IM PRN ×2 (04:11→17:10)
[2022-02-25] MEDS: IV DEXTROSE 5 %-0.45 % NACL 1,000 ML IV SCH ×2 (05:20→13:21)
[2022-02-25 07:00] VITALS: BP_SYST 129; BP_SYST 137; BP_DIAS 59; BP_DIAS 63
[2022-02-25 07:44] LABS: BASO # 0.4 x10^3/uL (0.0-0.2); BASO % 4 % (0-3); EOS # 0.3 x10^3/uL (0.0-0.7); EOS % 3 % (0-3); HEMATOCRIT 28.6 % (39.0-53.0); HEMOGLOBIN 9.4 g/dL (13.0-17.5); LYMPH # 2.5 x10^3/uL (1.0-4.8); LYMPH % 21 % (24-48); MEAN CORPUSCULAR HEMOGLOBIN 36 pg (25-35); MEAN CORPUSCULAR HGB CONC 33 g/dL (31-37); MEAN CORPUSCULAR VOLUME 109 fL (79-100); MONO # 1.1 x10^3/uL (0.0-1.1); MONO % 9 % (0-9); NEUT # 7.6 x10^3/uL (1.8-7.7); NEUT % 64 % (31-73); PLATELET COUNT 416 x10^3/uL (140-400); RED BLOOD COUNT 2.61 x10^6/uL (4.30-5.70); RED CELL DISTRIBUTION WIDTH 21.9 % (11.5-14.5); WHITE BLOOD COUNT 11.8 x10^3/uL (4.0-11.0)
[2022-02-25 07:53] LABS: CALCIUM 8.6 mg/dL (8.5-10.1); GFR 70.7; MAGNESIUM 2.6 mg/dL (1.8-2.4)
[2022-02-25] MEDS: PANTOPRAZOLE 40 MG TABLET.DR. PO SCH (08:42)
[2022-02-25] MEDS: ASPIRIN CHEWABLE 81 MG TABLET. PO SCH (08:43)
[2022-02-25] MEDS: ISOSORBIDE DINITRATE 10 MG TABLET. PO SCH (08:43)
[2022-02-25] MEDS: LACTOBACILLUS RHAMNOSUS GG 1 CAPSULE. PO SCH ×2 (08:43→19:24)
[2022-02-25] MEDS: LORazepam 0.5 MG TABLET PO PRN ×2 (08:43→19:24)
[2022-02-25] MEDS: CYANOCOBALAMIN (VITAMIN B-12) 1,000 MCG TABLET. PO SCH (08:43)
[2022-02-25] MEDS: DOCUSATE SODIUM 100 MG CAPSULE. PO SCH ×2 (08:43→19:39)
[2022-02-25] MEDS ORDERED: OXYC1TAB15 PO (10:45)
--- NOTE | 2022-02-25 10:51 | SNU/HH DC ---
DISCHARGE ORDERS DISCHARGE INFORMATION: DISCHARGE DATE: February 25, 2022 CONDITION ON DISCHARGE: Stable CODE STATUS: Code Status: Full MCFP: SNF STAY <30 DAYS: Yes POST DISCHARGE ORDERS: ACTIVITY ORDERS: Activity as tolerated, Avoid exertion, Walk in house WEIGHT BEARING STATUS: No restrictions BATHING ORDERS: Shower-keep dressing dry, No Tub Bath until see WOUND/INCISION CARE: Ice to area for comfort, Keep wound/cast CDI, Change dressing FOLLOW-UP: PHYSICIAN FOLLOW-UP: PCP within 2 weeks of discharge ADDITIONAL FOLLOW-UP: Neurosurgery as scheduled for postoperative check LAB ORDERS FOR FOLLOW-UP: CBC, CMP in 1 week TREATMENT/EQUIPMENT ORDERS: ADAPTIVE EQUIPMENT NEEDED: None Physical Therapy For: Evalulation/Treatment Occupational Therapy For: Evaluation/Treatment DISCHARGE MEDICATIONS: Home Meds Active Scripts Docusate Sodium (COLACE) 100 Mg Capsule, 100 MG PO BID for constipation, #60 CAP Prov:YOUSUF BROOKS MD 02/16/22 Reported Medications Cranberry Extract (CRANBERRY) 250 Mg Capsule, 250 MG PO PRN DAILY PRN for SEE COMMENTS, CAP 02/22/22 Cyanocobalamin (Vitamin B-12) (Vitamin B-12) 1,000 Mcg Capsule, 1 CAP PO PRN DAILY PRN for SEE COMMENTS for 30 Days, CAP 0 Refills 02/22/22 Isosorbide Dinitrate (ISOSORBIDE DINITRATE) 30 Mg Tablet, 10 MG PO DAILY for ., TAB 02/22/22 Aspirin (ASPIRIN) 81 Mg Tab.chew, 1 TAB PO DAILY for heart health, #30 TAB 07/13/21 Pantoprazole Sodium (PROTONIX ) 40 Mg Tablet.dr, 40 MG PO DAILYAC for GERD, TAB 07/13/21 Ondansetron Hcl (ZOFRAN) 4 Mg Tablet, 1 TAB PO Q6HRS PRN for prn q6, #20 TAB 02/02/21 Discontinued Reported Medications Donepezil Hcl (DONEPEZIL HCL) 10 Mg Tablet, 10 MG PO HS for sleep, TAB 02/02/21 Memantine Hcl (NAMENDA) 10 Mg Tablet, 1 TAB PO BID for rx, #180 TAB 1 Refill 02/02/21 PETE ALFREDO MD February 25, 2022 10:51
[2022-02-25 11:00] VITALS: BP 126/44
--- NOTE | 2022-02-25 13:18 | NUR ---
SS following up with discharge planning. SS reviewed pt chart and discussed with pt RN. Pt is currently on room air. SS was informed that behaviors better today. PT/OT recommended penitentiary unit. [facility]erral sent to [facility], ; fax [phone], per spouse request. COVID19 PCR test pending for placement. Updated PT note requested for insurance. Currently awaiting acceptance decision from facility. SS will continue to follow for discharge planning. Addendum: 02/25/22 at 1348 by FLORENCE DAVE SS [facility] not in network with pt's insurance. SS discussed with pt's spouse. Pt's spouse requesting referral to [facility], ; fax [phone]. Referral sent as requested.
[2022-02-25 15:00] VITALS: BP 133/54
[2022-02-25] MEDS: ENOXAPARIN 40 MG/0.4 ML SYRINGE. SQ SCH (16:34)
--- NOTE | 2022-02-25 17:11 | NUR ---
Pt agitated and pulling at IV, pulled call light out of wall, and pushing everything off his tray. Pt stated that he has to leave, his is dying. Unable to redirect patient. Attempted to administer PRN IM Geodon when patient grabbed and pushed this RN arm away. During this incident, pt obtained a scratch on R shoulder from resisting the needle. Second attempt to administer medication was successful. Attempted to apply bandage and change gown, pt will not allow nursing staff to touch him at this time. Pt son arrived as incident was occurring. Son was able to convince patient to sit down in chair and eat dinner. Bandage applied to R shoulder. Chair alarm set, call light in reach, IV fluids on hold at this time. Will continue to monitor.
[2022-02-25 19:00] VITALS: BP 146/66
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
[2022-02-25 23:02] VITALS: BP 133/60
[2022-02-26 03:03] VITALS: BP 130/56
[2022-02-26 07:00] VITALS: BP 120/57
[2022-02-26] MEDS: IV DEXTROSE 5 %-0.45 % NACL 1,000 ML IV SCH (08:00)
[2022-02-26] MEDS: LACTOBACILLUS RHAMNOSUS GG 1 CAPSULE. PO SCH (08:53)
[2022-02-26] MEDS: PANTOPRAZOLE 40 MG TABLET.DR. PO SCH (08:53)
[2022-02-26] MEDS: ASPIRIN CHEWABLE 81 MG TABLET. PO SCH (08:53)
[2022-02-26] MEDS: CYANOCOBALAMIN (VITAMIN B-12) 1,000 MCG TABLET. PO SCH (08:53)
[2022-02-26] MEDS: DOCUSATE SODIUM 100 MG CAPSULE. PO SCH (08:53)
[2022-02-26] MEDS: ISOSORBIDE DINITRATE 10 MG TABLET. PO SCH (08:53)
[2022-02-26 11:00] VITALS: BP 85/43
--- NOTE | 2022-02-26 12:18 | NUR ---
SS following up with discharge planning. SS reviewed pt chart and discussed with pt RN. Pt is currently on room air. COVID19 negative. PT/OT recommended senior living unit. SS received phone contact from [facility], ; fax [phone], stating that [facility] approved out of network benefits and pt is able to admit. Pt's spouse notified and agreeable. Discharge orders sent to facility. Pt will discharge today and go to [facility] between 1400 and 1430. Admitting facility to provide transportation. Pt, pt's RN, and pt's family notified.
[2022-02-26] MEDS ORDERED: QUET25TA3 PO (13:10)
--- NOTE | 2022-02-26 13:10 | NUR ---
Discharge Note: JESUS HOBBS BARWICK Discharge instructions and discharge home medications reviewed with Other facility and a copy given. All questions have been answered and understanding verbalized. The following instructions and handouts were given: worsening symptoms, follow up information, and activity. Discontinued lines and drains: patient has discontinued his own IV prior to this shift, no new IV started, skin intact, incision is BUTCH with no signs of infection noted. Patient discharged to [facility] with medical transportation.
[2022-02-26] MEDS ORDERED: QUEtiapine 25 MG TABLET. PO ONE (13:30)
[2022-02-26] MEDS ORDERED: QUEtiapine 25 MG TABLET. PO SCH (21:00)
--- NOTE | 2022-02-28 12:37 | PDOC3 ---
[facility]-Discharge Summary Date of Admission: Date of Admission: February 22, 2022 Date of Discharge: Date of Discharge: February 26, 2022 Discharge Diagnosis: Discharge Diagnosis: Acute electrolyte derangementhypernatremia, hyperchloremia suggestive of dehydrationwe will start D5 half NS at 75 cc/hr today Acute metabolic encephalopathy - No obvious centrally acting medications currently. No obvious signs of infection on physical exam. No fevers or nuchal rigidity. No history or signs of trauma Concern for postsurgical laminectomy surgical site infectionNS surgery reviewed images and reassured that there is no infection and just postop postsurgical c hanges. Will DC antibiotics Failure to thrive Macrocytic anemia Thrombocytopenia History of Alzheimer's dementia History of sick sinus syndrome status post pacemaker placement History of CAD with stents Consults: Consults: Per neurosurgery: Patient seen at 1200 resting calmly in bed nurse reports agitaion lumbar incision healed reviewed lumbar CT from [facility] , post op changes, satisfactory will follow D/W RN Hospital Course: Hospital Course: 86-year-old male with past medical history of Alzheimer's dementia, recent laminectomy by neurosurgery on 02/15/2022, sick sinus syndrome, pacemaker placement in February 02, 2021 who was transferred from [facility] because of urinary retention and confusion. Patient had an L4-L5 laminectomy done by Dr. Cooper about a week ago. provides most of the history and states that she had noticed some drainage from the wound that was slightly blood-tinged. She has also been noticing that the is more confused than usual. No aggression or self-harm noted. Patient also had some urinary retention and constipation since the surgery. Patient was transferred over from [facility] to this facility mainly for neurosurgery evaluation. Upon my encounter this morning patient was sitting on the toilet and was having multiple bowel movements. He also came with a Reed mainly due to urinary retention and upon review of the records he did have a bladder scan done at [facility] which showed 385 cc. Patient's review of systems limited due to dementia. 02/23/2022 No acute events overnight. Patient seen examined bedside. AF and VSS. Agitated for no episode requiring multiple nurses to keep patient from climbing out of bed. One-time Geodon dose given. Patient calm afterwards. Incision site is clear dry and intact. Patient's chart, labs, images were reviewed and discussed with RN 02/24/2022 No acute events overnight. Patient seen examined bedside. More calm and redirectable. Tolerating diet. Had a difficult night with multiple agitative episodes. Requiring Geodon. PT OT recommending SNF placement. Neurosurgery has essentially signed off. Patient's chart, labs, images were reviewed and discussed with RN By time of discharge patient was clinically stable. He requires some antiagitation medications and redirection to calm patient down. I started the patient on Seroquel during this admission. 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, #60 TAB Prov:PETE ALFREDO MD 02/26/22 Docusate Sodium (COLACE) 100 Mg Capsule, 100 MG PO BID for constipation, #60 CAP Prov:YOUSUF BROOKS MD 02/16/22 Reported Medications Cranberry Extract (CRANBERRY) 250 Mg Capsule, 250 MG PO PRN DAILY PRN for SEE COMMENTS, CAP 02/22/22 Cyanocobalamin (Vitamin B-12) (Vitamin B-12) 1,000 Mcg Capsule, 1 CAP PO PRN D AILY PRN for SEE COMMENTS for 30 Days, CAP 0 Refills 02/22/22 Isosorbide Dinitrate (ISOSORBIDE DINITRATE) 30 Mg Tablet, 10 MG PO DAILY for ., TAB 02/22/22 Aspirin (ASPIRIN) 81 Mg Tab.chew, 1 TAB PO DAILY for heart health, #30 TAB 07/13/21 Pantoprazole Sodium (PROTONIX ) 40 Mg Tablet.dr, 40 MG PO DAILYAC for GERD, TAB 07/13/21 Ondansetron Hcl (ZOFRAN) 4 Mg Tablet, 1 TAB PO Q6HRS PRN for prn q6, #20 TAB 02/02/21 Discontinued Reported Medications Donepezil Hcl (DONEPEZIL HCL) 10 Mg Tablet, 10 MG PO HS for sleep, TAB 02/02/21 Memantine Hcl (NAMENDA) 10 Mg Tablet, 1 TAB PO BID for rx, #180 TAB 1 Refill 02/02/21 Scheduled Aspirin (Aspirin), 1 TAB PO DAILY, (Reported) Docusate Sodium (Colace), 100 MG PO BID Isosorbide Dinitrate (Isosorbide Dinitrate), 10 MG PO DAILY, (Reported) Pantoprazole Sodium (Protonix ), 40 MG PO DAILYAC, (Reported) Quetiapine Fumarate (Quetiapine Fumarate), 50 MG PO QHS Scheduled PRN Cranberry Extract (Cranberry), 250 MG PO PRN DAILY PRN for SEE COMMENTS, (Reported) Cyanocobalamin (Vitamin B-12) (Vitamin B-12), 1 CAP PO PRN DAILY PRN for SEE COMMENTS, (Reported) Ondansetron Hcl (Zofran), 1 TAB PO Q6HRS PRN for prn q6, (Reported) Discontinued Medications Donepezil Hcl (Donepezil Hcl), 10 MG PO HS, (Reported) Memantine Hcl (Namenda), 1 TAB PO BID, (Reported) Total Time: Total Time: Total time spent was 38 minutes in preparing scripts, discharge planning with SWI and RN and preparing this discharge summary Patient seen and examined on day of discharge. No acute abnormal findings. Justicifation of Admission Dx: Justifications for Admission: Justification of Admission Dx: Yes PETE ALFREDO MD February 28, 2022 12:37
== END 2022-02-26 15:10 | DRG 640 ==
LOC: 5 NORTH 04:48
PROVIDERS: ADMIT Internal Medicine; ATTEND Internal Medicine
DX: E87.0 Hyperosmolality and hypernatremia (principal); G93.41 Metabolic encephalopathy; D53.9 Nutritional anemia, unspecified; R62.7 Adult failure to thrive; D69.6 Thrombocytopenia, unspecified; E87.8 Other disorders of electrolyte and fluid balance, not elsewhere classified; F02.80 Dementia in other diseases classified elsewhere, unspecified severity, without behavioral disturbance, psychotic disturbance, mood disturbance, and anxiety; G30.9 Alzheimer's disease, unspecified; Z20.822 Contact with and (suspected) exposure to COVID-19; I25.10 Atherosclerotic heart disease of native coronary artery without angina pectoris; K59.00 Constipation, unspecified; Z95.0 Presence of cardiac pacemaker; Z95.5 Presence of coronary angioplasty implant and graft; Z68.28 Body mass index [BMI] 28.0-28.9, adult
CPT/HCPCS: 36415; 70450; 73521; 80048; 81001; 82607; 83735; 84100; 84443; 85025; J0692; J1200; J1650; J2060; J3370; J3486; J7030; J7040; J7042; U0003; 97110-GO; 97110-GP; 97116-GP; 97530-GP; 97535-GO; G0378